=== PATIENT | male | born 1940 | race African-American/Black ===

== ENCOUNTER 2016-05-13 10:47 | Inpatient (IN) ==
[~2016-05-13 10:47] MED LIST: ROCEPHIN 1 GM/NS 50 ML IV ONE
--- NOTE | 2016-05-13 10:53 | PROVIDER DOCUMENTATION ---
HPI-Respiratory General - General Source: family Unable to obtain history due to:: urgency - History of Present Illness-Resp Quality of Pain: reports: tightness Severity in ED: reports: severe Onset/Duration: reports: abrupt, this morning Timing: reports: still present, constant, getting worse Context: reports: recent URI Cough Quality/Degree: reports: moderate, dry cough Episode Frequency: occasional episodes Current Respiratory Medication Therapy: Initiated see nurses note Modifying Factors: worse with: exertion, coughing, lying down Associated Symptoms: reports: cough, shortness of breath, short of breath. denies: fever/chills, flu-like symptoms, hurts to breathe, nasal congestion, nasal drainage, wheezing Similar Symptoms Previously?: No Recently seen or treated by another doctor?: Yes <Dany Hung - Last Filed: 05/13/16 12:36> <Mely Boucher - Last Filed: 05/13/16 12:42> - General Stated Complaint: difficulty breathing Time Seen by Provider: 05/13/16 10:47 Allergies/Adverse Reactions: Patient Allergies Allergy/AdvReac Type Severity Reaction Status Date / Time No Known Allergies Allergy Verified 05/02/15 16:04 Home Medications: Home Medication List Medication Instructions Recorded Confirmed Last Taken Type PRAVAstatin [Pravachol] 80 mg PO QHS 09/21/12 05/02/15 05/12/16 20:00 History Warfarin Sodium [Coumadin] 2.5 mg PO HS 09/21/12 05/02/15 05/12/16 20:00 History Budesonide/Formoterol Inhaler 2 puff INH BID 08/19/14 05/02/15 05/01/15 History [Symbicort 160/4.5 Microgm Inhaler] Meclizine [Antivert] 25 mg PO TID 08/19/14 05/02/15 05/12/16 20:00 History Carvedilol [Coreg] 12.5 mg PO BID #60 tablet 02/22/15 05/02/15 05/12/16 20:00 Rx Furosemide [Lasix] 40 mg PO BID #0 tablet 04/04/15 05/02/15 05/12/16 20:00 Rx Dicyclomine [Bentyl] 20 mg PO BID PRN 05/13/16 05/13/16 Unknown History Isosorbide 10 mg MC TID 05/13/16 05/13/16 05/12/16 20:00 History Levofloxacin [Levaquin] 500 mg PO DAILY 05/13/16 05/13/16 05/12/16 08:00 History Methylprednisolone [Medrol Dosepak] 4 mg PO DIRECTED 05/13/16 05/13/16 20:00 History Potassium Chloride [Klor-Con] 20 meq PO DAILY 05/13/16 05/13/16 05/12/16 20:00 History Sucralfate [Carafate] 1 gm PO 405/13/16 05/13/16 05/12/16 20:00 History - History of Present Illness-Resp Nature of Presenting Problem: patient is a 75 y/o M that presents to the ER via EMS in respiratory distress. patient had had recent PNA and was on antibiotics. He has a history of CHF. Patient symptoms came on abruptly this morning. He has had generalized weakness over the past 3 days. EMS couldn't get an O2 saturation. (Dany Hung) Review of Systems - Adult - REVIEW OF SYSTEMS - ADULT ROS:: ROS per family Constitutional: denies: chills, fever Eyes: reports: no symptoms reported Ears, Nose, Mouth & Throat: denies: ear pain, sinus problem, throat pain Cardiovascular: reports: edema. denies: chest pain, palpitations, syncope Respiratory: reports: cough, dyspnea on exertion, shortness of breath Gastrointestinal: denies: abdominal pain, diarrhea, nausea, vomiting Genitourinary: reports: no symptoms reported Musculoskeletal: reports: muscle weakness. denies: back pain, joint pain, neck pain Integumentary: reports: no symptoms reported Neurological: denies: dizziness/vertigo, headache/migraines, syncope Psychiatric: reports: no symptoms reported Endocrine: reports: no symptoms reported Hematologic/Lymphatic: reports: no symptoms reported Allergic/Immunologic: reports: no symptoms reported All Other Systems: Reviewed and Negative <Dany Hung - Last Filed: 05/13/16 12:36> Past History - Adult - PAST MEDICAL HISTORY-ADULT Review of Records: reports: Old Records Reviewed, Nursing Assessment Review, Medications Reviewed Cardiovascular: reports: cardiac disease (triple bypass), A-Fib, CHF, HTN, MN ( light), pacemaker, other (Cardiomyopathy) Genitourinary: reports: kidney disease (renal insuffiency) - PRIOR SURGERIES/PROCEDURES Surgical/Procedure History: reports: pacemaker, other (triple bypass) - IMMUNIZATION STATUS Childhood Immunizations: See Nurse Assessment Flu Vaccine: See Nurse Assessment - FAMILY HISTORY Family History: reviewed, not pertinent - SOCIAL HISTORY Smoking: cigarettes, less than 1 pack/day Living Situation: family <Dany Hung - Last Filed: 05/13/16 12:36> Physical Exam-General - PHYSICAL EXAM-ADULT Exam Limited by: pt condition Initial Vital Signs Reviewed: Yes - CONSTITUTIONAL General Appearance: severe distress, lethargic - EYES Eyes: PERRL/EOMI, pink conjunctivae - HEAD, EARS, NOSE, MOUTH & THROAT HENMT: normocephalic/atraumatic, moist mucous membranes, normal ENT inspection - NECK Neck: full range of motion, other (JVD noted bilaterally) - RESPIRATORY Respiratory: respiratory distress (moderate to severe), decreased breath sounds (at bases), accessory muscle use, increased rate - CARDIOVASCULAR Cardiovascular: no gallop, no murmur, other (irregular regular) - GASTROINTESTINAL (ABDOMEN) Abdominal Exam: normal bowel sounds, non tender, soft, no organomegaly, no pulsatile mass - MUSCULOSKELETAL Extremity: no calf tenderness, pedal edema (bilaterall at ankles). negative: deformity, erythema - SKIN Integumentary: normal turgor, warm/dry - PSYCHIATRIC Psych/Mental Status: other (lethargic). negative: anxious, paranoid <Dany Hung - Last Filed: 05/13/16 12:36> Progress - EKG 1 Time of EKG reading by physician:: 10:55 EKG Read and Signed by:: John Conteh EKG Interpretation (*Must complete 3 of following elements*): Abnormal Rate: 70 Rhythm: A-fib QRS: RBB ST Wave: non-specific ST changes - XRAY 1 XRAY Study: Chest Impression: Abnormal XRAY Interpretation: ET Tip 2cm above the amor, left infiltrate or atelectasis - CONSULTS/PCP/HOSPITALIST Notification #1 *Consult/PCP/Hospitalist*: ( conference services manager for hospitalist) Time Discussed: 12:15 Reason/Comments: will call and update Consult Disposition: Will see in ED, Admit #2 Consult: Time Discussed: 12:35 Consult Disposition: Will see in ED, Admit <Dany Hung - Last Filed: 05/13/16 12:36> <Mely Boucher - Last Filed: 05/13/16 12:42> - PLAN OF CARE/RESULTS Progress/Plan/Lab Results: 1047- at bedside, agrees with plan of care which is labs, abgs, ekg, meds, cxr, and patient will be placed on BiPap 1110-Patient and family discussing his DNR status, Dr. Conteh took over care. 1123- discussed with and family patient's condition, and family want patient to be intubated 1150- took over care of patient Vital Signs Temp Pulse Resp BP Pulse Ox 05/13/16 11:00 100 05/13/16 10:58 97.3 F L 75 30 H 92/60 100 No Known Allergies Allergy (Verified 05/02/15 16:04) PRAVAstatin [Pravachol] 80 mg PO QHS 09/21/12 Warfarin Sodium [Coumadin] 2.5 mg PO HS 09/21/12 Budesonide/Formoterol Inhaler [Symbicort 160/4.5 Microgm Inhaler] 2 puff INH BID 08/19/14 Meclizine [Antivert] 25 mg PO TID 08/19/14 Carvedilol [Coreg] 12.5 mg PO BID #60 tablet 02/22/15 Furosemide [Lasix] 40 mg PO BID #0 tablet 04/04/15 Dicyclomine [Bentyl] 20 mg PO BID PRN 05/13/16 Isosorbide 10 mg MC TID 05/13/16 Levofloxacin [Levaquin] 500 mg PO DAILY 05/13/16 Methylprednisolone [Medrol Dosepak] 4 mg PO DIRECTED 05/13/16 Potassium Chloride [Klor-Con] 20 meq PO DAILY 05/13/16 Sucralfate [Carafate] 1 gm PO 4XDAY 05/13/16 Laboratory 05/13/16 05/13/16 05/13/16 11:34 11:34 10:51 WBC 7.02 RBC 3.77 L Hgb 11.8 L Hct 35.7 L MCV 94.7 MCH 31.3 H MCHC 33.1 RDW Std Deviation 17.6 H Plt Count 163 MPV 12.1 H Immature Gran % (Auto) 0.3 Neut % (Auto) 80.9 H Lymph % (Auto) 8.8 L [place] % (Auto) 10.0 H Eos % (Auto) 0.0 Baso % (Auto) 0.0 Immature Gran # (Auto) 0.02 Neut # (Auto) 5.68 Lymph # (Auto) 0.62 L [place] # (Auto) 0.70 H Eos # (Auto) 0.00 Baso # (Auto) 0.00 Specimen Type Sample Site pH pCO2 pO2 HCO3 Base Excess Oxyhemoglobin ABG O2 Sat (Calculated) ABG O2 Saturation ABG Carboxyhemoglobin ABG Methemoglobin Terrell Test A-a O2 Difference Total Hemoglobin Lactate Blood Gas Modality Vent Mode FiO2 % Inspiratory BiPAP Expiratory BiPAP Sodium 132 L Potassium 5.8 H Chloride 95 L Carbon Dioxide 16 L Anion Gap 21 BUN 66 H Creatinine 3.9 H Estimated GFR/1.73 m2 18 BUN/Creatinine Ratio 17 Glucose 84 Calculated Osmolality 283 Calcium 9.5 Total Bilirubin 1.16 H AST 26 ALT 13 Alkaline Phosphatase 112 Creatine Kinase 273 H Troponin T 0.078 Total Protein 7.6 Albumin 3.8 Globulin 3.8 Albumin/Globulin Ratio 1.0 05/13/16 10:51 WBC RBC Hgb Hct MCV MCH MCHC RDW Std Deviation Plt Count MPV Immature Gran % (Auto) Neut % (Auto) Lymph % (Auto) [place] % (Auto) Eos % (Auto) Baso % (Auto) Immature Gran # (Auto) Neut # (Auto) Lymph # (Auto) [place] # (Auto) Eos # (Auto) Baso # (Auto) Specimen Type ARTERIAL Sample Site L RADIAL pH 7.28 L pCO2 30 L pO2 393 H HCO3 16.0 L Base Excess -11.4 L Oxyhemoglobin 97.0 ABG O2 Sat (Calculated) 17.5 ABG O2 Saturation 100.2 H ABG Carboxyhemoglobin 2.10 ABG Methemoglobin 1.1 Terrell Test YES A-a O2 Difference 283.0 Total Hemoglobin 12.1 Lactate 1.80 Blood Gas Modality BI PAP Vent Mode BIPAP FiO2 % 100.0 Inspiratory BiPAP 16.0 Expiratory BiPAP 6.0 Sodium Potassium Chloride Carbon Dioxide Anion Gap BUN Creatinine Estimated GFR/1.73 m2 BUN/Creatinine Ratio Glucose Calculated Osmolality Calcium Total Bilirubin AST ALT Alkaline Phosphatase Creatine Kinase Troponin T Total Protein Albumin Globulin Albumin/Globulin Ratio Orders Category Date Time Status Saline Loc NOW Care 05/13/16 10:47 Active CHEST-PORTABLE [RAD] Stat Exams 05/13/16 11:38 Taken ABG [RESP] Routine Lab 05/13/16 10:51 Completed BLOOD CULTURE [BLDCUL] Stat Lab 05/13/16 11:34 Results CBC WITH DIFF [HEME] Stat Lab 05/13/16 10:51 Results CK PROFILE [SP CHEM] Stat Lab 05/13/16 11:34 Results COMPREHENSIVE METABOLIC PANEL [CHEM] Stat Lab 05/13/16 11:34 Results PRO B-NATRIURETIC PEPTIDE Stat Lab 05/13/16 11:34 Received SPUTUM CULTURE WITH GRAM STAIN [RM] Routine Lab 05/13/16 11:49 Received TROPONIN T Stat Lab 05/13/16 11:34 Completed CefTRIAXONE 1 GM/NS [Rocephin 1 gm/Ns] 50 ml Med 05/13/16 10:47 Discontinued IV NOW Etomidate [Amidate] Med 05/13/16 11:35 Discontinued 20 mg IV NOW ONE Propofol [Diprivan 1%] Med 05/13/16 11:47 Discontinued 10 mg IV STAT ONE Propofol [Diprivan 1%] 100 ml Med 05/13/16 11:37 Discontinued .ROUTE As Directed Propofol [Diprivan 1%] 100 ml Med 05/13/16 11:45 Discontinued IV Per Protocol Propofol [Diprivan 1%] 100 ml Med 05/13/16 11:46 Active IV Per Protocol Succinylcholine [Quelicin] Med 05/13/16 11:35 Discontinued 100 mg IV NOW ONE Succinylcholine [Quelicin] Med 05/13/16 11:24 Discontinued 200 mg .ROUTE .STK-MED ONE BIPAP Stat Oth 05/13/16 10:49 Active Pulse Oximetry Stat Oth 05/13/16 10:47 Active Ventilator Order Stat Oth 05/13/16 12:02 Active EKG [EKG] Stat Ther 05/13/16 10:49 Ordered 1 (Dany Hung) Laboratory Tests 05/13/16 05/13/16 05/13/16 10:51 10:51 11:34 WBC 7.02 RBC 3.77 L Hgb 11.8 L Hct 35.7 L MCV 94.7 MCH 31.3 H MCHC 33.1 RDW Std Deviation 17.6 H Plt Count 163 MPV 12.1 H Immature Gran % (Auto) 0.3 Neut % (Auto) 80.9 H Lymph % (Auto) 8.8 L [place] % (Auto) 10.0 H Eos % (Auto) 0.0 Baso % (Auto) 0.0 Immature Gran # (Auto) 0.02 Neut # (Auto) 5.68 Lymph # (Auto) 0.62 L [place] # (Auto) 0.70 H Eos # (Auto) 0.00 Baso # (Auto) 0.00 Segmented Neutrophils 76 H Lymphocytes 18 L Monocytes 6 Nucleated RBCs 3 H Hypochromia 1+ Large Platelets 1+ Poikilocytosis 1+ Anisocytosis 1+ Specimen Type ARTERIAL Sample Site L RADIAL pH 7.28 L pCO2 30 L pO2 393 H HCO3 16.0 L Base Excess -11.4 L Oxyhemoglobin 97.0 ABG O2 Sat (Calculated) 17.5 ABG O2 Saturation 100.2 H ABG Carboxyhemoglobin 2.10 ABG Methemoglobin 1.1 Terrell Test YES A-a O2 Difference 283.0 Total Hemoglobin 12.1 Lactate 1.80 Blood Gas Modality BI PAP Vent Mode BIPAP FiO2 % 100.0 Inspiratory BiPAP 16.0 Expiratory BiPAP 6.0 Sodium 132 L Potassium 5.8 H Chloride 95 L Carbon Dioxide 16 L Anion Gap 21 BUN 66 H Creatinine 3.9 H Estimated GFR/1.73 m2 18 BUN/Creatinine Ratio 17 Glucose 84 Calculated Osmolality 283 Calcium 9.5 Total Bilirubin 1.16 H AST 26 ALT 13 Alkaline Phosphatase 112 Creatine Kinase 273 H Creatine Kinase Index 3.9 H CK-MB (CK-2) 10.76 H Troponin T [id number] Pept Total Protein 7.6 Albumin 3.8 Globulin 3.8 Albumin/Globulin Ratio 1.0 05/13/16 05/13/16 11:34 11:34 WBC RBC Hgb Hct MCV MCH MCHC RDW Std Deviation Plt Count MPV Immature Gran % (Auto) Neut % (Auto) Lymph % (Auto) [place] % (Auto) Eos % (Auto) Baso % (Auto) Immature Gran # (Auto) Neut # (Auto) Lymph # (Auto) [place] # (Auto) Eos # (Auto) Baso # (Auto) Segmented Neutrophils Lymphocytes Monocytes Nucleated RBCs Hypochromia Large Platelets Poikilocytosis Anisocytosis Specimen Type Sample Site pH pCO2 pO2 HCO3 Base Excess Oxyhemoglobin ABG O2 Sat (Calculated) ABG O2 Saturation ABG Carboxyhemoglobin ABG Methemoglobin Terrell Test A-a O2 Difference Total Hemoglobin Lactate Blood Gas Modality Vent Mode FiO2 % Inspiratory BiPAP Expiratory BiPAP Sodium Potassium Chloride Carbon Dioxide Anion Gap BUN Creatinine Estimated GFR/1.73 m2 BUN/Creatinine Ratio Glucose Calculated Osmolality Calcium Total Bilirubin AST ALT Alkaline Phosphatase Creatine Kinase Creatine Kinase Index CK-MB (CK-2) Troponin T 0.078 [id number]-Czwnfchsmqh Pept > 60485 H Total Protein Albumin Globulin Albumin/Globulin Ratio Orders Category Date Time Status Saline Loc NOW Care 05/13/16 10:47 Active CHEST-PORTABLE [RAD] Stat Exams 05/13/16 11:38 Draft ABG [RESP] Routine Lab 05/13/16 10:51 Completed BLOOD CULTURE [BLDCUL] Stat Lab 05/13/16 11:34 Results CBC WITH DIFF [HEME] Stat Lab 05/13/16 10:51 Completed CK PROFILE [SP CHEM] Stat Lab 05/13/16 11:34 Completed COMPREHENSIVE METABOLIC PANEL [CHEM] Stat Lab 05/13/16 11:34 Completed PRO B-NATRIURETIC PEPTIDE Stat Lab 05/13/16 11:34 Completed SPUTUM CULTURE WITH GRAM STAIN [RM] Routine Lab 05/13/16 11:49 Received TROPONIN T Stat Lab 05/13/16 11:34 Completed CefTRIAXONE 1 GM/NS [Rocephin 1 gm/Ns] 50 ml Med 05/13/16 10:47 Discontinued IV NOW Etomidate [Amidate] Med 05/13/16 11:35 Discontinued 20 mg IV NOW ONE Levofloxacin 750 mg/D5w [Levaquin 750 mg/D5w] 150 ml Med 05/13/16 12:30 Active IV NOW Methylprednisolone Sod Succ [Solu-Medrol] Med 05/13/16 12:31 Discontinued 80 mg IV NOW ONE Propofol [Diprivan 1%] Med 05/13/16 11:47 Discontinued 10 mg IV STAT ONE Propofol [Diprivan 1%] 100 ml Med 05/13/16 11:37 Discontinued .ROUTE As Directed Propofol [Diprivan 1%] 100 ml Med 05/13/16 11:45 Discontinued IV Per Protocol Propofol [Diprivan 1%] 100 ml Med 05/13/16 11:46 Active IV Per Protocol Succinylcholine [Quelicin] Med 05/13/16 11:35 Discontinued 100 mg IV NOW ONE Succinylcholine [Quelicin] Med 05/13/16 11:24 Discontinued 200 mg .ROUTE .STK-MED ONE BIPAP Stat Oth 05/13/16 10:49 Active Pulse Oximetry Stat Oth 05/13/16 10:47 Active Ventilator Order Stat Oth 05/13/16 12:02 Active EKG [EKG] Stat Ther 05/13/16 10:49 Ordered Orders Category Date Time Status Saline Loc NOW Care 05/13/16 10:47 Active CHEST-PORTABLE [RAD] Stat Exams 05/13/16 11:38 Draft ABG [RESP] Routine Lab 05/13/16 10:51 Completed BLOOD CULTURE [BLDCUL] Stat Lab 05/13/16 11:34 Results CBC WITH DIFF [HEME] Stat Lab 05/13/16 10:51 Completed CK PROFILE [SP CHEM] Stat Lab 05/13/16 11:34 Completed COMPREHENSIVE METABOLIC PANEL [CHEM] Stat Lab 05/13/16 11:34 Completed PRO B-NATRIURETIC PEPTIDE Stat Lab 05/13/16 11:34 Completed SPUTUM CULTURE WITH GRAM STAIN [RM] Routine Lab 05/13/16 11:49 Received TROPONIN T Stat Lab 05/13/16 11:34 Completed CefTRIAXONE 1 GM/NS [Rocephin 1 gm/Ns] 50 ml Med 05/13/16 10:47 Discontinued IV NOW Etomidate [Amidate] Med 05/13/16 11:35 Discontinued 20 mg IV NOW ONE Levofloxacin 750 mg/D5w [Levaquin 750 mg/D5w] 150 ml Med 05/13/16 12:30 Active IV NOW Methylprednisolone Sod Succ [Solu-Medrol] Med 05/13/16 12:31 Discontinued 80 mg IV NOW ONE Propofol [Diprivan 1%] Med 05/13/16 11:47 Discontinued 10 mg IV STAT ONE Propofol [Diprivan 1%] 100 ml Med 05/13/16 11:37 Discontinued .ROUTE As Directed Propofol [Diprivan 1%] 100 ml Med 05/13/16 11:45 Discontinued IV Per Protocol Propofol [Diprivan 1%] 100 ml Med 05/13/16 11:46 Active IV Per Protocol Succinylcholine [Quelicin] Med 05/13/16 11:35 Discontinued 100 mg IV NOW ONE Succinylcholine [Quelicin] Med 05/13/16 11:24 Discontinued 200 mg .ROUTE .STK-MED ONE BIPAP Stat Oth 05/13/16 10:49 Active Pulse Oximetry Stat Oth 05/13/16 10:47 Active Ventilator Order Stat Oth 05/13/16 12:02 Active EKG [EKG] Stat Ther 05/13/16 10:49 Ordered (Mely Boucher) Procedures - INTUBATION Time of Intubation: 11:50 Mallampati Class: 1 Intubation Method: orotracheal Equipment: ETT Tube Size (cm): 7.5 Pretreated with 100% Oxygen?: Yes Breath Sounds after Intubation: equal ETT Primary Tube Confirmation: Capnometry CO2 Change, Direct Visualization, Chest Rise and Fall, Tube placement verified on XRAY, Tube Repositioned (1cm back) Intubation Complications: no complications Vent Settings: See Respiratory Therapy Notes <Dany Hung - Last Filed: 05/13/16 12:36> - INTUBATION Time of Intubation: 11:35 Airway Evaluation: Abnormal 3-3-2 rule, Large/Loose Teeth Mallampati Class: 2 Intubation Method: orotracheal Equipment: ETT Tube Size (cm): 7.5 Pretreated with 100% Oxygen?: Yes Breath Sounds after Intubation: equal ETT Primary Tube Confirmation: Capnometry CO2 Change, Direct Visualization, Chest Rise and Fall Intubation Complications: no complications Vent Settings: See Respiratory Therapy Notes <Mely Boucher - Last Filed: 05/13/16 12:42> Departure - Departure Time of Disposition Order: 12:15 Certified Medical Emergency: Emergent - Critical Care Note Total Time (mins): 55 Critical Care Statement: This patient required my direct personal management to treat or rule out processes, the absence of which, could potentiallly result in sudden, clinically significant life or limb threatening deterioration. <Dany Hung - Last Filed: 05/13/16 12:36> - Departure Time of Disposition Order: 12:00 <Mely Boucher - Last Filed: 05/13/16 12:42> - Departure DIAGNOSIS: COPD exacerbation, Shortness of breath, Atrial fibrillation Respiratory failure Qualifiers: Chronicity: acute Respiratory failure complication: hypoxia Qualified Code(s): J96.01 - Acute respiratory failure with hypoxia LLL pneumonia Qualifiers: Pneumonia type: due to unspecified organism Qualified Code(s): J18.1 - Lobar pneumonia, unspecified organism Disposition: ADMITTED INPATIENT 09 Condition: Critical Referrals: Yaritza Gonzalez MD [Primary Care Provider] - Attestation - Scribe Verification/Attestation Scribe:: Dany Hung Acting as Scribe for:: Brian Duff Scribe documention review:: This chart was documented by a scribe and accurately reflects the service the provider performed and the decisions made by the provider. - Scribe Verification/Attestation #2 Scribe Name: Dany Hung Acting as Scribe for:: John Conteh #3 Scribe Name: Dany Hung Acting as Scribe for:: Mely Boucher - Physician/ [place] Attestation Patient care was provided by Advanced Practice Provider:: Yes Advanced Practice Provider:: Brian Duff Advanced Practice Provider documentation review:: The Mid-level provider documentation, treatment plan and medical decision making was reviewed by the physician who agrees with all treatment and medical decision making by the [facility]. The physician spent face to face time with patient:: Yes <Dany Hung - Last Filed: 05/13/16 12:36> Physician Attestation - Physician Attestation I, the provider, attest to the following statement:: Brian Duff Physician documentation Attestation:: This documentation recorded by the scribe accurately reflects the service I personally performed and the decisions made by me. <Dany Hung - Last Filed: 05/13/16 12:36>
[2016-05-13 10:59] LABS: ALLEN TEST YES; BE -11.4 mmoll (-3.0-3.0); BLOOD TYPE ARTERIAL; DRAW SITE L RADIAL; METHB 1.1 % (0.0-1.5); O2(CT) 17.5 mL/dL (15.0-23.0); PCO2(98.6) 30 mmHg (35-45); PO2(98.6) 393 mmHg (60-100); SAMPLE BLOOD; SAO2 100.2 % (95.0-100.0); THB 12.1 g/dL (11.5-17.4); pH(98.6) 7.28 (7.35-7.45)
[2016-05-13 11:01] LABS: MODALITY BI PAP
[2016-05-13] MEDS ORDERED: QUELICIN ONE (11:24)
[2016-05-13] MEDS ORDERED: AMIDATE IV ONE (11:35)
[2016-05-13] MEDS ORDERED: QUELICIN IV ONE (11:35)
[2016-05-13 11:37] LABS: HEMATOCRIT 35.7 % (42.0-52.0); HEMOGLOBIN 11.8 g/dL (14.0-18.0); IMM GRAN# 0.02 X1000 (0.0-0.04); IMM GRAN% 0.3 % (0.0-0.5); LYMPH# 0.62 X1000 (1.2-3.4); LYMPH% 8.8 % (20.5-51.1); MANUAL DIFF NEEDED? YES; MCH 31.3 PG (27-31); MCHC 33.1 g/dL (33-37); MCV 94.7 FL (81-99); MPV 12.1 FL (7.4-10.4); NEUT% 80.9 % (42.2-75.2); PLT 163 X1000 (130-400); RBC 3.77 XMIL (4.7-6.1)
[2016-05-13] MEDS ORDERED: DIPRIVAN 1% 100 ML ONE (11:37)
[2016-05-13] MEDS: DIPRIVAN 1% 100 ML IV SCH ×6 (11:39→22:07)
[2016-05-13] MEDS ORDERED: DIPRIVAN 1% 100 ML IV SCH (11:45)
[2016-05-13] MEDS ORDERED: DIPRIVAN 1% IV ONE (11:47)
[2016-05-13 12:06] LABS: ALBUMIN 3.8 g/dL (3.5-5.0); CALCIUM 9.5 mg/dL (8.8-10.2); POTASSIUM 5.8 mmol/L (3.5-5.1); TOTAL BILIRUBIN 1.16 mg/dL (0.20-1.00); TOTAL PROTEIN 7.6 g/dL (6.3-8.3)
--- NOTE | 2016-05-13 12:27 | Diag Imaging Result Document ---
PROCEDURE NAME: CHEST-PORTABLE - 05/13/2016 PORTABLE CHEST: FINDINGS: Compared to 03/30/2015. There is an endotracheal tube with the tip located approximately 2 cm above the amor. Sternal wires are present. The patient has a pacemaker. The heart remains enlarged. Likely infiltrate or atelectasis in the left base and there may be a tiny left effusion as well. The upper mid lungs are clear. IMPRESSION: 1. Endotracheal tube in good position. 2. Left basilar infiltrate or atelectasis. [facility]
[2016-05-13 12:28] LABS: CK INDEX 3.9 (0.0-2.5); CK-MB 10.76 ng/mL (0.0-5.0)
[2016-05-13 12:30] LABS: HYPOCHROM 1+; LARGE PLATELETS 1+; LYMPHS 18 % (21-51); MONO 6 % (1-9); NRBC 3 % (0-0)
[2016-05-13] MEDS ORDERED: LEVAQUIN 750 MG/D5W 150 ML IV ONE (12:30)
[2016-05-13] MEDS ORDERED: SOLU-MEDROL IV ONE (12:31)
[2016-05-13] MEDS ORDERED: TYLENOL PO PRN (13:17)
[2016-05-13 13:23] LABS: ALLEN TEST YES; BE -10.6 mmoll (-3.0-3.0); BLOOD TYPE ARTERIAL; DRAW SITE L RADIAL; METHB 1.1 % (0.0-1.5); O2(CT) 15.2 mL/dL (15.0-23.0); PCO2(98.6) 36 mmHg (35-45); PO2(98.6) 172 mmHg (60-100); SAMPLE BLOOD; SAO2 100.2 % (95.0-100.0); SRATE 14 BPM; THB 10.9 g/dL (11.5-17.4); TVOL 600 mL; pH(98.6) 7.25 (7.35-7.45)
[2016-05-13 13:24] LABS: MODALITY VENTILATOR
[2016-05-13] MEDS ORDERED: MAXIPIME 1 GM/NS 50 ML IV ONE (13:29)
[2016-05-13] MEDS ORDERED: DUONEB (A & A) INH PRN (13:29)
[2016-05-13] MEDS ORDERED: VANCOMYCIN IV PER PHARMACY MISC SCH (13:30)
[2016-05-13] MEDS ORDERED: MORPHINE IV PRN (13:30)
[2016-05-13 13:41] LABS: INR 2.59; PROTIME 27.7 Seconds (9.2-11.7)
--- NOTE | 2016-05-13 14:36 | EKG Report ---
Test Performed on : 05/13/2016 10:55:42 AM Test Reason : respiratory distress Blood Pressure : / mmHG Vent. 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
[2016-05-13] MEDS: DUONEB (A & A) INH SCH ×3 (15:21→23:48)
[2016-05-13] MEDS ORDERED: VANCOMYCIN 2,000 MG in NS 500 ML IV ONE (16:00)
--- NOTE | 2016-05-13 16:17 | ECHO REPORT ---
ORDER DATE: 05/13/2016 INDICATIONS: CHF exacerbation. FINDINGS: 1. The right atrium is moderately enlarged with a dimension of 5 cm. Linear artifact consistent with device leads are noted in the right heart chambers. 2. There is severe tricuspid regurgitation. RV systolic pressure of 43. 3. The right ventricle was enlarged with moderate reduction in RV systolic function. 4. Pulmonic insufficiency. 5. Severe left atrial enlargement at 6.3 cm. 6. No mitral valve prolapse. Trace mitral regurgitation. 7. The left ventricle appears normal in size with an end-diastolic dimension of 5.1. There is severe left ventricular hypertrophy with a posterior and interventricular septal wall thickness 1.7 cm each. Severe LV systolic dysfunction with an estimated EF 15-20. Global hypokinesis with regional variation. Notably there is a significant spontaneous smoke seen in the left ventricular chamber consistent with a low-flow state. 8. The aortic valve opens well and appears trileaflet. There is mild aortic insufficiency. No evidence of stenosis. 9. The aorta appears somewhat dilated with a dimension of 4.4 cm seen in the root. 10. No pericardial effusion is seen.
[2016-05-13] MEDS ORDERED: DOPAMINE 400 MG/D5W 500 ML IV SCH (17:30)
[2016-05-13] MEDS ORDERED: LASIX IV SCH (17:38)
[2016-05-13] MEDS ORDERED: ATIVAN IV PRN (17:38)
[2016-05-13] MEDS: LASIX 100 MG in NS 90 ML IV SCH (17:50)
--- NOTE | 2016-05-13 18:02 | HISTORY AND PHYSICAL ---
CHIEF COMPLAINT: As per at bedside, shortness of breath, increased swelling in bilateral lower extremities, with a positive productive cough now for many months. The patient is currently intubated and sedated on propofol. HISTORY OF PRESENT ILLNESS: Mr. Josehp is a 75-year-old male, who comes with a past medical history of chronic systolic heart failure, COPD, coronary artery disease status post CABG, atrial fibrillation with a defibrillator, hypertension, dyslipidemia, chronic kidney disease stage 3 as well as a recent diagnosis on 05/09/16 of pneumonia by his primary care physician, Yaritza Gonzalez MD. He was started on Levaquin, given a steroid dose pack and if not feeling better on Friday was told to start a Z-Han which he did. Per the and daughter, patient continued to have worsening shortness of breath and worsening bilateral lower extremity edema. They noted that he was complaining of some abdominal discomfort, which he usually has when he has too much fluid on him. The family also did report a very productive cough. They stated he has had a productive cough for over a year now. They really wanted to bring him back to the ED on Friday; however, patient's brother who recently and his is today, but his shortness of breath was so bad that they had to call EMS. Per EMS report, they could not get an oxygen saturation on the patient. He was brought here, immediately placed on BiPAP and then shortly after he was intubated by the ED doctors. Upon physical assessment, the patient is intubated. He did have copious amounts of secretions coming out of his mouth which were suctioned out. His ABGs did show metabolic acidosis and his chest x-ray shows left basilar infiltrate and/or atelectasis with a tiny left pleural effusion. He does have an acute on chronic kidney injury with a BUN of 66 and a creatinine of 3.9, and a proBNP greater than 35,000 as well as a potassium of 5.8 and a sodium of 132. Blood and sputum cultures are pending. The patient will be admitted to the ICU with a Pulmonary, Cardiology and Nephrology consult as well as started on IV vancomycin and cefepime. PAST MEDICAL HISTORY: 1. Coronary artery disease status post CABG. 2. Chronic systolic heart failure status post ICD placement. 3. Hypertension. 4. PA. 5. Hyperlipidemia. 6. COPD. I believe the patient is still on active smoker. 7. Chronic kidney disease stage 3. 8. Chronic atrial fibrillation. PAST SURGICAL HISTORY: 1. CABG. 2. ICD placement. FAMILY HISTORY: Family history reviewed and noncontributory. SOCIAL HISTORY: Patient lives with his . He has a supportive family at the bedside. I believe he is still a current smoker. No alcohol or illicit drug use. ALLERGIES: No known drug allergies. HOME MEDICATIONS: Have not been verified. REVIEW OF SYSTEMS: Ten point review of systems completely negative, except for those mentioned in HPI. Very limited due to patient being intubated and sedated. Most information obtained from the and daughter at bedside. PHYSICAL EXAMINATION: VITAL SIGNS: Temperature is 97.3 degrees, heart rate 78, respirations 14, blood pressure is 92/59, O2 is 96% on mechanical ventilation. GENERAL: This is a 75-year-old male, who is lying on the stretcher intubated, sedated, in no acute distress. Does have a positive gag reflex when oral suctioned. HEENT: Atraumatic, normocephalic. PERRL. NECK: Supple. Did note some JVD. CARDIOVASCULAR: S1, S2 appreciated. Irregularly irregular rhythm. No murmurs, gallops, or rubs noted. RESPIRATORY: Lung sounds, bilateral rhonchi all lung galarza. EXTREMITIES: Bilateral lower extremities, patient does have pitting edema from the groin area down to his feet, 2-3+. ABDOMEN: Soft, positive bowel sounds 4 quadrants. NEUROLOGIC: Patient is sedated on propofol. LABORATORY DATA: White count 7, hemoglobin 11, hematocrit 35, platelet count is 163,000. PT and INR are ordered. Initial blood gas: PH 7.28, pCO2 30, PO2 is 393, bicarb 16. Base excess was negative 11.4. O2 saturation was 100.2. This was on BiPAP. Repeat ABGs on ventilator: PH 7.25, pCO2 36, PO2 is 172, bicarb is 16.7, base excess was -10.6. O2 saturation was 100, lactate was 1.80. Second lactate was 1.10. Blood cultures and sputum culture are pending. IMAGING: Chest x-ray shows left basilar infiltrate or atelectasis and tiny left effusion. ASSESSMENT AND PLAN: 1. Acute respiratory failure with secondary metabolic acidosis, multifactorial related to chronic obstructive pulmonary disease exacerbation and congestive heart failure exacerbation. The patient is being admitted to the intensive care unit. He was intubated in the emergency department. We will consult Pulmonology, Dr. Nathan. Daily x-rays as well as arterial blood gases and breathing treatments while on ventilator. We appreciate Dr. Nathan's help. 2. Left lower lung pneumonia with a recent diagnosis of pneumonia with his primary care physician, Dr. Gonzalez. Patient was on p.o. Levaquin. We will switch his antibiotics to vancomycin as well as Cefepime. We have asked Nephrology to help dose with medications. 3. Chronic obstructive pulmonary disease exacerbation. Again, we will continue with the mechanical ventilation, Pulmonary consult as well as continued intravenous antibiotics, bronchodilators, intravenous steroids, aggressive pulmonary toilet. 4. Congestive heart failure exacerbation. We will continue with intravenous Lasix, monitor daily weights, strict input and output . We will go ahead and check echocardiogram. Patient's last echo was over a year ago where he had an ejection fraction of 39-43%. 5. Severe ischemic cardiomyopathy with known coronary artery disease with status post coronary artery bypass graft. Aware. 6. Ventricular arrhythmias. Aware. Status post implantable cardioverter defibrillator. 7. Chronic atrial fibrillation on Coumadin. We will check ProTime and international normalized ratio daily. 8. Hypertension. Aware. 9. Dyslipidemia. Aware. 10. Chronic kidney disease, I believe stage III on acute kidney injury. We will consult Dr. Gill again to help with medical management. 11. Chronic obstructive pulmonary disease exacerbation. See all above. The patient is being transferred to the intensive care unit on ventilator and sedation as well as medication for agitation and pain. Further recommendations to follow physician evaluation, laboratory data, diagnostic data and consult recommendations. CRITICAL CARE TIME SPENT: Greater than 30 minutes. Dictated by RUMA De León for Pedro Rocha MD
[2016-05-13] MEDS ORDERED: D50W SYRINGE IV ONE (18:05)
[2016-05-13 18:56] LABS: CK-MB 9.46 ng/mL (0.0-5.0)
--- NOTE | 2016-05-13 19:39 | CONSULTATION ---
DATE OF CONSULTATION: 05/13/2016 CHIEF COMPLAINT: Shortness of breath, swelling. HISTORY OF PRESENT ILLNESS: Mr. Joseph is a 75-year-old black gentleman who is normally followed by Dr. Sada Burr at our office. He was brought to the emergency room by the family today because for the past 2 weeks or so he has been complaining of increasing epigastric pain and swelling of the legs associated with shortness of breath. The shortness of breath happens with minimal effort. Over the course of the past few days, it has been happening just at rest with orthopnea. Today he could barely breathe and the family basically brought him to the hospital. According to them, he was seen by his primary doctor on of last week, which would have been about 4 days ago. At that time he was placed on levofloxacin, methylprednisolone, and sucralfate because of suspicion of some bronchitis. At any rate, the patient today at the time of presentation was in acute respiratory failure. Chest x-ray showed pulmonary infiltrates, atelectasis. Pro BNP was greater than 35,000. CPK was 273. BUN was 66, creatinine 3.9. This is one of the highest that he has had in a long time. His electrocardiogram showed a paced rhythm. It appears to be underlying atrial fibrillation, ventricular paced and with PVCs. His blood gas initially showed pH 7.28, pCO2 of 30, and pO2 of 393 on a BiPAP system. Eventually he had to be intubated. At this time, he is on IV propofol. He is sedated. Family is at the bedside. They provided the pertinent information. PAST MEDICAL HISTORY: Positive for severe coronary heart disease in the past. He has had impaired ventricular function. As of August 2014, ejection fraction was 39%. Today echocardiogram was done and his ejection fraction is between 15-20%, significantly impaired. He has history of hypertension, history of paroxysmal atrial fibrillation. He has had ventricular tachycardia in the past. As I said, he has coronary heart disease. PAST SURGICAL HISTORY: Positive for coronary artery bypass surgery in March 2005, with a left internal mammary artery graft to LAD, vein graft to marginal, vein graft to right coronary artery. The patient has received an AICD in November 2006 and subsequently the battery has been replaced on 09/21/2012. SOCIAL HISTORY: He has been for 51 years, has two children. He does smoke half a pack a day. He is retired. He occasionally drinks alcohol. FAMILY HISTORY: Positive for coronary heart disease. HOME MEDICATIONS: 1. Warfarin 2.5 at bedtime. 2. Sucralfate 1 g 4 times a day. 3. Potassium chloride 20 mEq daily. 4. Pravastatin 80 mg at bedtime. 5. Methylprednisolone 40 mg as directed. 6. Meclizine 25 mg 3 times a day. 7. Levaquin 500 daily. 8. Isosorbide dinitrate 3 times a day, 10 mg. 9. Furosemide 40 mg twice a day. 10.Dicyclomine 20 mg twice a day. 11.Carvedilol 12.5 twice a day. 12.Symbicort 2 puffs twice a day. ALLERGIES: The patient has no allergies. REVIEW OF SYSTEMS: His review of systems at this time is not obtainable other than what the family relates which is that his functional capacity has deteriorated. He has been more short of breath. He has been swelling up and he has been having epigastric pain. No other positives. PHYSICAL EXAMINATION: Vital signs: Blood pressure 130/94, temperature 98.5, pulse 76, respirations 12. General: He is sedated. Neck: Prominent jugular veins. HEENT: Pupils showed changes consistent with previous cataract surgery. Breath sounds are diminished bilaterally. I do not hear rhonchi or rales. Cardiac: Heart sounds are slightly irregular. No gallop or murmur noted. Abdomen: Slightly distended. Bowel sounds diminished. No hepatomegaly. Extremities: Showed markedly diminished pulses. He has 2-3+ edema bilaterally. Neurologic: He is sedated. LABORATORY DATA: Blood work, in addition to the blood gases I related, showed hemoglobin 11.8, hematocrit 35.7, white count 7020. Chemistries: Sodium 132, potassium 5.8, BUN 66, creatinine 3.9. IMPRESSION: 1. Patient who presented to the hospital with acute respiratory failure. This is secondary to chronic systolic congestive heart failure plus acute on chronic kidney failure. 2. History of previous coronary bypass surgery. 3. History of chronic atrial fibrillation on long-term anticoagulation with warfarin. Of note, his anticoagulation is adequate at this time. INR is 2.59. 4. Status post AICD implantation for ventricular tachycardia. 5. Significant and progressive deterioration of systolic function per today's echocardiogram. RECOMMENDATIONS: At this point in time, the patient's situation appears to be grave. We will initiate aggressive diuresis. He may need hemodialysis to remove fluids. His overall prognosis is quite guarded. We may have to put him on low-dose dopamine if his blood pressure drops. Further intervention will depend on his clinical course. Thank you for the opportunity to participate in his evaluation. MTDD
[2016-05-13] MEDS: PRAVACHOL PO SCH (20:46)
[2016-05-13] MEDS: SODIUM CHLORIDE 0.9% INJ SCH (21:06)
[2016-05-13] MEDS: PROTONIX IV SCH (21:06)
[2016-05-13] MEDS: SODIUM BICARBONATE 8.4% IV PUSH SCH (21:06)
[2016-05-14] MEDS: SODIUM BICARBONATE 8.4% IV PUSH SCH ×2 (00:43→03:45)
[2016-05-14] MEDS: LASIX 100 MG in NS 90 ML IV SCH ×3 (01:20→19:00)
[2016-05-14] MEDS: MAXIPIME 1 GM/NS 50 ML IV SCH ×2 (02:06→15:47)
[2016-05-14] MEDS: DIPRIVAN 1% 100 ML IV SCH ×5 (02:06→22:27)
[2016-05-14] MEDS: DUONEB (A & A) INH SCH ×6 (03:29→22:36)
[2016-05-14 04:53] LABS: ALLEN TEST YES; BE -0.3 mmoll (-3.0-3.0); BLOOD TYPE ARTERIAL; DRAW SITE R RADIAL; METHB 1.6 % (0.0-1.5); O2(CT) 15.9 mL/dL (15.0-23.0); PCO2(98.6) 23 mmHg (35-45); PO2(98.6) 128 mmHg (60-100); SAMPLE BLOOD; SRATE 18 BPM; THB 11.6 g/dL (11.5-17.4); TVOL 700 mL
--- NOTE | 2016-05-14 04:54 | CONSULTATION ---
DATE OF CONSULTATION: 05/13/2016 REQUESTING PHYSICIAN: Dr. Rocha. REASON FOR CONSULTATION: Respiratory failure. HISTORY OF PRESENT ILLNESS: Mr. Joseph is a 75-year-old, black male with a history of prior tobacco use, coronary artery disease, peripheral vascular disease who presented to the emergency room with acute respiratory distress. The patient was intubated and initiated on mechanical ventilation. History is therefore limited. PAST MEDICAL HISTORY: 1. Ischemic cardiomyopathy with a history of 3 vessel bypass and history of left main disease with a left internal mammary artery placement. Echocardiogram today revealed an ejection fraction of 15-20%. 2. History of congestive heart failure. 3. History of ventricular arrhythmias. 4. Chronic atrial fibrillation. 5. Hypertension. 6. Dyslipidemia. 7. Chronic renal insufficiency. 8. Aortic aneurysm, status post endograft placement. 9. Gastroesophageal reflux disease. 10. Status post bilateral cataract removal. 11. Social alcohol use. SOCIAL HISTORY: Previous consultation by cardiology indicated prior tobacco use. Current intake indicates continued tobacco use at 1 pack per day. FAMILY HISTORY: Noncontributory to current presentation. REVIEW OF SYSTEMS: Cannot be obtained. PHYSICAL EXAMINATION: General: Reveals a chronically ill-appearing, black male, on mechanical ventilation. Currently sedated. Vital Signs: Blood pressure 127/84, heart rate 68 and irregular, respiration rate 18, oxygen saturation 100%. HEENT: Pupils are equal and reactive. Oropharynx is clear but evaluation is limited with endotracheal tube in place. Neck: Supple. Chest: Reveals good air entry bilaterally with occasional rhonchi. Cardiac Examination: Irregularly irregular. Distant S1, distant S2. Abdomen: Soft without hepatosplenomegaly. Extremities: Cool to the touch. LABORATORIES: Chest x-ray reveals endotracheal tube in good position, pacemaker placement, atelectasis versus infiltrate with small effusions to the left base. Arterial blood gas on mechanical ventilation reveals pH of 7.25, pCO2 of 36, PO2 of 172. Chemistry: Sodium 132, potassium 5.8, chloride 95, bicarbonate 16, BUN 66, creatinine 3.9. ProBNP is markedly elevated at greater than 35,000. CPK is elevated at 236 with an index of 4, troponin is at the upper limits of normal at 0.78. White blood count 7.02, hemoglobin 11.8, platelet count 163,000. IMPRESSION: A 75-year-old with a history of ongoing tobacco use according to the nursing intake sheet, ischemic cardiomyopathy, who presents with acute hypoxemic respiratory failure, acute on chronic renal failure, hyperkalemia. RECOMMENDATION: 1. Continue full ventilatory support. 2. Increase minute ventilation and give sodium bicarbonate for acidosis and hyperkalemia. 3. Check sputum for culture and sensitivity. 4. Continue broad-spectrum antibiotics as you are doing. 5. Gastric acid suppression. 6. Additional recommendations pending hospital course.
[2016-05-14 04:55] LABS: CALCIUM 9.4 mg/dL (8.8-10.2); POTASSIUM 4.4 mmol/L (3.5-5.1)
[2016-05-14 04:59] LABS: pH(98.6) 7.56 (7.35-7.45)
[2016-05-14 05:00] LABS: MODALITY VENTILATOR
[2016-05-14 05:00] LABS: HEMATOCRIT 36.6 % (42.0-52.0); HEMOGLOBIN 12.4 g/dL (14.0-18.0); LYMPH# 0.33 X1000 (1.2-3.4); LYMPH% 6.5 % (20.5-51.1); MANUAL DIFF NEEDED? YES; MCH 30.9 PG (27-31); MCHC 33.9 g/dL (33-37); MCV 91.3 FL (81-99); MONO# 0.32 X1000 (0.11-0.59); MONO% 6.3 % (1.7-9.3); MPV 11.3 FL (7.4-10.4); NEUT% 87.2 % (42.2-75.2); PLT 173 X1000 (130-400); RBC 4.01 XMIL (4.7-6.1)
[2016-05-14 06:26] LABS: LYMPHS 5 % (21-51); MONO 2 % (1-9); NRBC 3 % (0-0)
[2016-05-14 06:55] LABS: INR 2.52
--- NOTE | 2016-05-14 07:36 | Diag Imaging Result Document ---
PROCEDURE NAME: CHEST-PORTABLE - 05/14/2016 PORTABLE CHEST X-RAY: COMPARISON: 05/13/2016. FINDINGS: There is probably an endotracheal tube, although positioning of the film is not optimal. Nasogastric tube is in good position in the stomach. Stable pacemaker and cardiomegaly. Grossly stable streaky retrocardiac infiltrate or atelectasis. IMPRESSION: No complication from line or tube placement.
--- NOTE | 2016-05-14 07:54 | Diag Imaging Result Document ---
PROCEDURE NAME: CHEST-PORTABLE - 05/13/2016 PORTABLE CHEST X-RAY AT 1900 HOURS: COMPARISON: 1150 hours. FINDINGS: There is a nasogastric tube with the tip in the stomach. Otherwise, no changes. IMPRESSION: Good nasogastric tube placement in the stomach.
--- NOTE | 2016-05-14 09:33 | PROGRESS NOTE ---
DATE: 05/14/2016 CHIEF COMPLAINT: Shortness of breath. SUBJECTIVE: Mr. Joseph remains on the ventilator. He is totally sedated and unresponsive. OBJECTIVE: Vital signs: Right now his pulse is 77 and irregular, blood pressure 124/92, respirations 12, and temperature 98 degrees. He is orotracheal intubated. He has no spontaneous movements. HEENT: Unremarkable. Chest: Symmetrical breath sounds. Cardiovascular: Heart sounds are distant and irregular. Gastrointestinal: The abdomen is not distended. No hepatomegaly is noted. Extremities: The extremities show decreased pulses. There is 1+ edema. Neurological: He is totally sedated and I cannot elicit any response from him. Blood work reveals a sodium of 138, potassium 4.4, BUN 67, and creatinine 3.4. ProBNP has dropped to 25,000. Troponins have been checked a total of 3 times and they were all negative. His telemetry shows atrial fibrillation with PVCs, paced rhythm. The patient has been on anticoagulation and in fact his INR is therapeutic today at 2.52. IMPRESSION: 1. Patient presenting with acute respiratory failure. This is secondary to chronic systolic heart failure due to ischemic cardiomyopathy which probably has experienced decompensation. 2. Chronic kidney disease also with acute decompensation. 3. History of automatic implantable cardioverter defibrillator implantation. 4. History of hypertension in the past. RECOMMENDATION: At this point in time the patient's condition is still very grave. We have put him on IV Lasix and he is experiencing good diuresis. In fact, his sodium and potassium have corrected just by diuresing. His blood gases today on 35% FiO2 are very good with a pO2 of 128. CO2 is 23. His pH is alkalotic. At this point in time I would probably continue the present course of management. We will have to take one day at a time. The family is aware of the seriousness of his condition. We will make further changes to his therapy depending on his overall clinical course. Given his recurrent hospital admissions and his general poor health his prognosis is very guarded and it would not be unreasonable to offer the option of hospice care for this patient at some point. Thank you again for the opportunity to participate in his evaluation.
[2016-05-14 11:06] LABS: URINE MICRO REVIEW NEEDED? NO; URINE SOURCE CATH
--- NOTE | 2016-05-14 11:12 | PROGRESS NOTE ---
DATE: 05/14/2016 Today Mr. Joseph continues to be intubated. There are actually no changes overnight. OBJECTIVE: Vital signs: Blood pressure is 117/87, pulse of 85, respiration is 19, temperature 98.0 degrees. General: Mr. Joseph is a 75-year-old male. He is in bed, intubated and sedated. HEENT: Mucosa is pink and moist. Anicteric. Acyanotic. Neck: Supple. Positive for JVD. Chest: Air entry is bilaterally reduced. There are bibasilar coarse crepitations. Cardiovascular: Regular rate and rhythm with occasional extrasystole beats. There is pronounced P2 sound. Arm numb. Abdomen: Soft, nontender. Extremities: 3+ pedal edema. PRODUCTION ASSISTANT: Patient is sedated and intubated. LABORATORY DATA: WBC is 5.04, hemoglobin is 12.4, platelet count of 173,000. There is 93% of neutrophils and no bands. Chemistry is reviewed consistent with end-stage renal disease. A chest x-ray done this morning shows grossly stable streaky retrocardiac infiltrate or atelectasis. An echocardiogram which was done yesterday showed EF of 15-20% with severe left ventricular hypertrophy. ASSESSMENT: 1. Acute on chronic systolic congestive heart failure. 2. Acute hypoxic respiratory failure secondary to CHF exacerbation. 3. Suspected left lower lobe pneumonia. 4. COPD questionable in exacerbation. 5. Endstage renal disease. 6. The patient is status post pacemaker. 7. Hypotension on presentation. Likely from cardiogenic shock with possible superimposed sepsis. 8. MRSA positive sputum likely the cause of the pneumonia. 9. Respiratory alkalosis. Ventilation is being managed by Pulmonary Medicine. Will defer any recommendations to them. 10. CKD IV. Baseline creatine worsened likely from cardiorenal physiology. Continue with Lasix GENERAL PLAN: We will going to continue with the current antibiotics until we have blood culture results. If the blood cultures are negative we will stop the cefepime and continue only on the vancomycin for possible MRSA pneumonia. Will also continue with the current furosemide drip and follow further recommendations from both Pulmonary Medicine and Cardiology. [facility]
[2016-05-14 11:17] LABS: BILIRUBIN URINE NEGATIVE (NEGATIVE); BLOOD URINE NEGATIVE (NEGATIVE); COLOR YELLOW; GLUCOSE URINE NEGATIVE (NEGATIVE); LEUKOCYTES URINE NEGATIVE (NEGATIVE); NITRITE URINE NEGATIVE (NEGATIVE); PROTEIN URINE NEGATIVE (NEGATIVE); SP GRAVITY URINE 1.006; TURBIDITY URINE CLEAR (CLEAR); UROBILINOGEN URINE NORMAL (NORMAL)
[2016-05-14 11:19] LABS: UR EPITHELIAL CELLS <10 /HPF (<10); URINE BACTERIA NEGATIVE /HPF; URINE RBC <10 /HPF (<10); URINE WBC <10 /HPF (<10)
[2016-05-14 11:33] LABS: UR CREAT RANDOM 22.7 mg/dL (14-26); UR PROT RANDOM 6.6 mg/dL
--- NOTE | 2016-05-14 13:19 | Diag Imaging Result Document ---
PROCEDURE NAME: US RENAL 2 (RETROPER) COMPLETE - 05/14/2016 RENAL ULTRASOUND: COMPARISON: 10/05/2015. FINDINGS: The left kidney is obscured due to the patient's condition and inability to move. The right kidney is nonobstructed. There are some right renal cysts, stable from prior. The largest is at the lower pole measuring about 5.3 cm. The right kidney measures 10.3 x 5.5 x 4.1 cm. Urinary bladder is collapsed by a Nicolas catheter. No abdominal free fluid. IMPRESSION: Several right renal cysts. Otherwise, no complication of the right kidney. The left kidney is obscured due to the patient's condition and position.
--- NOTE | 2016-05-14 13:24 | CONSULTATION ---
DATE OF CONSULTATION: 05/14/2016 REASON FOR CONSULTATION: CKD on NGUYỄN, medication assistance and heart failure. HISTORY OF PRESENT ILLNESS: Mr. Joseph is a 75-year-old black man, who is currently on the ventilator and unable to provide any history. I saw him in January of 2015, at which time he had a baseline creatinine of 2.5 and had been stable at that level. He at that time presented with decompensated heart failure, and we followed him throughout his hospitalization. He was last seen in our office in November 2015, and his last lab data in our office was collected on November 16, at which time his potassium was 4.0, bicarbonate 16, BUN 36 and creatinine 2.2. He was admitted to the hospital on this occasion on yesterday, the -. He had respiratory failure and was intubated and placed on the mechanical ventilator. He is currently sedated and unresponsive. History is therefore entirely obtained from the chart. He has been able to be weaned down such that he is on 35% FiO2 currently and is oxygenating well with this setting. He has been treated with IV diuretics overnight and is 5 L negative. PAST MEDICAL HISTORY: 1. Ischemic cardiomyopathy with LVEF of 15% to 20%. 2. History of ventricular tachyarrhythmias. 3. Chronic atrial fibrillation. 4. Hypertension. 5. Hyperlipidemia. 6. CKD as above. 7. Aortic aneurysm status post endograft repair. 8. GERD. SOCIAL HISTORY: Prior tobacco and ongoing tobacco. FAMILY HISTORY/REVIEW OF SYSTEMS: Otherwise not obtainable by me. PHYSICAL EXAMINATION: Vital Signs: Blood pressure 117/87, heart rate 85, respirations 19, afebrile. General: He is an elderly man on the ventilator, sedated, unresponsive. Skin: Warm and dry. HEENT: Conjunctivae are pink. Pupils are equal. Oropharynx is dry. Neck: Supple. Neck veins are distended at 6 to 8 cm. Trachea is midline. Heart: Regular with no audible gallops or murmurs. Lungs: Have equal breath sounds. No crackles or wheezes anteriorly. Abdomen: Soft, nontender. Bowel sounds are diminished. No organomegaly or masses or bruits. Extremities: Have 2+ edema. No clubbing or cyanosis. LABORATORY DATA: A pH of 7.56, pCO2 23, PO2 128 on 35% FiO2. Hemoglobin 12.4. Sodium 138, potassium 4.4, chloride 98, bicarbonate 18, BUN 67, creatinine 3.4. IMPRESSION: Acute kidney injury overlying chronic kidney disease. Again, baseline creatinine is approximately 2 to 2.5 and he presented with a creatinine of 3.9. Creatinine is improved to 3.4 with treatment of his heart failure. This led support to the diagnosis of prerenal azotemia secondary to decompensated systolic heart failure. His blood pressure is acceptable. I have reviewed his medication and no adjustments are required with regard to his kidney disease. Pharmacy is following his vancomycin dosing. We will check urine electrolytes. Repeat renal ultrasound. We will follow.
[2016-05-14] MEDS: SODIUM CHLORIDE 0.9% INJ SCH (20:01)
[2016-05-14] MEDS: PROTONIX IV SCH (20:01)
[2016-05-14] MEDS: PRAVACHOL PO SCH (20:01)
[2016-05-15] MEDS: MAXIPIME 1 GM/NS 50 ML IV SCH (02:12)
[2016-05-15] MEDS: LASIX 100 MG in NS 90 ML IV SCH ×3 (02:33→20:14)
[2016-05-15] MEDS: DUONEB (A & A) INH SCH ×6 (02:43→22:49)
[2016-05-15] MEDS: DIPRIVAN 1% 100 ML IV SCH ×2 (04:10→10:57)
[2016-05-15 04:32] LABS: ALLEN TEST YES; BE 2.4 mmoll (-3.0-3.0); BLOOD TYPE ARTERIAL; DRAW SITE R RADIAL; METHB 1.3 % (0.0-1.5); O2(CT) 19.2 mL/dL (15.0-23.0); PCO2(98.6) 38 mmHg (35-45); PO2(98.6) 131 mmHg (60-100); SAMPLE BLOOD; SRATE 8 BPM; TVOL 700 mL; pH(98.6) 7.45 (7.35-7.45)
[2016-05-15 04:43] LABS: MODALITY VENTILATOR
[2016-05-15 04:58] LABS: HEMATOCRIT 41.1 % (42.0-52.0); HEMOGLOBIN 13.4 g/dL (14.0-18.0); MCH 30.9 PG (27-31); MCHC 32.6 g/dL (33-37); MCV 94.9 FL (81-99); MPV 10.9 FL (7.4-10.4); RBC 4.33 XMIL (4.7-6.1)
[2016-05-15 05:16] LABS: INR 2.26; PROTIME 24.2 Seconds (9.2-11.7)
[2016-05-15 05:25] LABS: ALBUMIN 3.2 g/dL (3.5-5.0); CALCIUM 9.4 mg/dL (8.8-10.2); POTASSIUM 4.2 mmol/L (3.5-5.1); TOTAL BILIRUBIN 1.05 mg/dL (0.20-1.00); TOTAL PROTEIN 7.4 g/dL (6.3-8.3)
--- NOTE | 2016-05-15 07:51 | Diag Imaging Result Document ---
PROCEDURE NAME: CHEST-PORTABLE - 05/15/2016 AP PORTABLE CHEST AT 0500 HOURS: FINDINGS: There is an endotracheal tube with its tip at the thoracic inlet and an NG tube which apparently passes below the diaphragm. There are atelectatic changes present in the lingula. This has not changed significantly since 05/14/2016. The right lung remains clear. IMPRESSION: Stable chest.
--- NOTE | 2016-05-15 11:49 | PROGRESS NOTE ---
DATE: 05/15/2016 SUBJECTIVE: Today, Mr. Joseph continues to be intubated. There is a family member in the room at the time of the encounter. OBJECTIVE: Vital Signs: Blood pressure is 101/67, pulse of 86, respirations are 22, temperature is 98 degrees. General Examination: Mr. Joseph is a 75-year-old, male. He was in bed, continues to be intubated, synchronizing very well with the ventilator. Neck: Supple. Chest: Good air entry bilateral. No crepitations. A few transmitted sounds from the ventilator. Cardiovascular: Regular rate and rhythm with occasional extrasystole beats. There is a pronounced P2. Abdomen: Soft, nontender. Extremities: About 2+ pedal edema bilaterally. Looks a whole lot better than yesterday. CONFORMAL PAD FORMER: Patient is intubated and sedated. Laboratory Data: WBC is 9.71, hemoglobin is 13.4, platelet count of 182,000. Chemistries reviewed, abnormally just the renal function consistent with his CKD. ASSESSMENT: 1. Acute on chronic systolic congestive heart failure. 2. Acute hypoxemic respiratory failure secondary to congestive heart failure exacerbation. 3. Suspected left lower lobe pneumonia. Patient continues to be on antibiotics. Methicillin- resistant Staphylococcus aureus positive sputum. The patient is getting vancomycin. The other antibiotics have been discontinued. 4. Chronic kidney disease stage IV to V. The creatinine has slightly worsened and I think this is due to hypoperfusion from the cardiogenic shock. 5. Hypotension on presentation, likely from cardiogenic shock. GENERAL PLAN: 1. Cefepime has been discontinued. We are going to continue with the vancomycin for the MRSA pneumonia. 2. We will follow up with further recommendations from pulmonary medicine as to when patient can be extubated. 3. Creatinine is slightly improving. I think this is due to cardiorenal physiology and as we remove more fluid, probably that would improve to the baseline.
--- NOTE | 2016-05-15 12:06 | PROGRESS NOTE ---
DATE: 05/15/2016 CHIEF COMPLAINT: Shortness of breath. SUBJECTIVE: Mr. Joseph remains intubated. However, his number in general look much better. He is moving his arms right now. He is slowly waking up after propofol was discontinued. He does not appear to be in distress. OBJECTIVE: Vital signs: Blood pressure 101/67, temperature 98 degrees, pulse 86, respirations 12. General: He moves randomly his arms and legs. He reacts to pain. HEENT: Otherwise unremarkable. Chest: Good breath sounds especially in the right lung field. Cardiac: Heart sounds are irregularly irregular. Abdomen: Soft, not distended, nontender. Extremities: Showed no obvious edema at this time. Edema appears to have resolved. Neurological: He moves randomly his 4 extremities. Skin: Shows no rashes. LABORATORY: Result of sputum culture is positive for Staphylococcus aureus, MRSA positive. Chemistry today: Sodium 139, potassium 4.2. His BUN went up to 72. Creatinine went down to 3.2. Potassium is 4.2, chloride 98, carbon dioxide 25. Albumin is 3.2. His pH is 7.45, pCO2 is 38, pO2 is 131 on 35% FiO2. White count 9610, hemoglobin 13.4. IMAGING: Chest x-ray today shows stable chest with good aeration of the right lung. There are atelectatic changes present in the lingula. TELEMETRY: His telemetry shows atrial fibrillation. IMPRESSION: 1. Patient presented with acute respiratory failure secondary to severe chronic congestive systolic heart failure. He also has chronic kidney disease. 2. History of chronic atrial fibrillation. 3. History of severe coronary artery disease. 4. MRSA bronchitis, rule out pneumonia. RECOMMENDATION: At this point in time, will probably consider switching his Lasix to a lower dose. We are going to switch over to probably 120 mg twice a day from his current Lasix drip. We will see how he does. He has demonstrated very good diuresis on review of his intake and output. His urine output has been extremely good, and right now he has no demonstrable edema. Further evaluation or intervention will depend on his clinical response. We will follow him along. [facility]
--- NOTE | 2016-05-15 13:04 | PROGRESS NOTE ---
DATE: 05/15/2016 DATE AND TIME: 05/15/2016 at 0800 hours. SUBJECTIVE: Patient currently resting in bed. He is sedated. He is mechanically ventilated. OBJECTIVE: Vital Signs: Temperature 98.0 degrees, pulse 86, respiratory rate 22, blood pressure 101/67. Intake 1.6 L. Output 6.3 L. General: This is an elderly gentleman currently sedated and unresponsive. He is mechanically ventilated. HEENT: Normocephalic, atraumatic. He is orally intubated. Neck: Thick, supple. Positive JVD noted. Cardiovascular: Irregular rate and rhythm. No murmur appreciated. Pulmonary: Equal excursion. Mechanically ventilated. Abdomen: Soft, with positive bowel sounds, hypoactive. Extremities: 2+ pretibial edema with upper extremity edema and dependent edema to the backs of the hips. Extremities are warm. No clubbing or cyanosis noted. Integumentary: Skin is warm and dry. There is no rash or lesion appreciated. LAB DATA: WBC of 9.7, hemoglobin 13.4, sodium 139, potassium 4.2, CO2 25, BUN 72, creatinine 3.2, calcium 9.4. ASSESSMENT AND PLAN: Acute overlying chronic kidney disease. His baseline creatinine is 2 to 2.5. He has improved overnight. His urine output has picked up appreciably. We will continue to monitor. There are no changes required from a renal standpoint, today. Check labs in the morning. Seen, data reviewed, discussed with Anu Mariee on 05/15/16. I agree with the above assessment and plan of care. rg Dictated by RUMA Galindo for Ej Gill MD [facility]
[2016-05-15 14:09] LABS: ALLEN TEST YES; BE 5.1 mmoll (-3.0-3.0); BLOOD TYPE ARTERIAL; DRAW SITE R RADIAL; METHB 1.5 % (0.0-1.5); O2(CT) 18.7 mL/dL (15.0-23.0); PCO2(98.6) 33 mmHg (35-45); PO2(98.6) 125 mmHg (60-100); SAMPLE BLOOD; SAO2 99.6 % (95.0-100.0); THB 13.7 g/dL (11.5-17.4); pH(98.6) 7.53 (7.35-7.45)
[2016-05-15 14:11] LABS: MODALITY VENTILATOR
[2016-05-15] MEDS: VANCOMYCIN 1,500 MG in NS 250 ML IV SCH (16:45)
[2016-05-15] MEDS: SODIUM CHLORIDE 0.9% INJ SCH (20:30)
[2016-05-15] MEDS: PROTONIX IV SCH (20:30)
[2016-05-15] MEDS: PRAVACHOL PO SCH (20:30)
[2016-05-16] MEDS: DUONEB (A & A) INH SCH ×6 (03:31→22:57)
[2016-05-16] MEDS ORDERED: VANCOMYCIN 1,500 MG in NS 250 ML IV SCH (04:00)
[2016-05-16 05:59] LABS: PROTIME 21.3 Seconds (9.2-11.7)
--- NOTE | 2016-05-16 06:14 | Diag Imaging Result Document ---
PROCEDURE NAME: CHEST-PORTABLE - 05/16/2016 PORTABLE CHEST: COMPARISON: Compared to 05/15/2016. FINDINGS: Sternal wires are present. The patient has a left-sided pacemaker. There are increased interstitial markings in the lower left lung which remain. The left hemidiaphragm is elevated. The right lung remains clear. A nasogastric tube overlies the esophagus and stomach. IMPRESSION: Stable chest.
[2016-05-16 06:38] LABS: ALBUMIN 3.1 g/dL (3.5-5.0); CALCIUM 9.6 mg/dL (8.8-10.2); POTASSIUM 3.8 mmol/L (3.5-5.1); TOTAL BILIRUBIN 1.15 mg/dL (0.20-1.00); TOTAL PROTEIN 7.1 g/dL (6.3-8.3)
[2016-05-16] MEDS: LASIX 100 MG in NS 90 ML IV SCH (06:39)
[2016-05-16] MEDS ORDERED: LASIX IV SCH (10:45)
[2016-05-16 11:04] LABS: ALLEN TEST YES; BE 6.6 mmoll (-3.0-3.0); BLOOD TYPE ARTERIAL; DRAW SITE L RADIAL; METHB 1.4 % (0.0-1.5); O2(CT) 16.8 mL/dL (15.0-23.0); PCO2(98.6) 44 mmHg (35-45); PO2(98.6) 55 mmHg (60-100); SAMPLE BLOOD; SAO2 90.7 % (95.0-100.0); THB 13.7 g/dL (11.5-17.4); pH(98.6) 7.46 (7.35-7.45)
[2016-05-16 11:05] LABS: MODALITY CANNULA
--- NOTE | 2016-05-16 11:36 | PROGRESS NOTE ---
DATE: 05/16/2016 SUBJECTIVE: The patient is a little bit sleepy, but reports feeling fine. No chest pain. No difficulty in breathing. No fever or chills. OBJECTIVE: Vital Signs: Temperature 97.0, heart rate 92, respiratory rate 28, blood pressure 118/73, O2 saturation 92% on 4 L nasal cannula. General Examination: This is a 75-year-old, chronically ill-looking, male, lying in bed, in no acute distress. HEENT: Head is normocephalic, atraumatic. Anicteric sclerae, pale conjunctivae. Mucous membranes moist. Neck: Supple. No JVD noted. No carotid bruits. No lymphadenopathy. No thyromegaly. Cardiovascular: S1 and S2 heard. No murmurs, gallops, or rubs. Regular rate and rhythm. Respiratory: A few bibasilar crackles. Patient is not using any accessory muscles or having work of breathing. Abdomen: Soft, nontender to palpation. Bowel sounds present. No organomegaly. Extremity: 2+ pitting edema in both lower extremities. Peripheral pulses present in both legs. Neurological: Patient moves 4 extremities and answers questions. LABORATORY DATA: There are no labs from today, except INR 2.0. ASSESSMENT: 1. Acute on chronic systolic congestive heart failure. 2. Acute hypoxemic respiratory failure, secondary to congestive heart failure. 3. Methicillin resistant Staph aureus, left lower lobe pneumonia. 4. Chronic kidney disease stage 5. 5. Hypotension on presentation from cardiogenic shock. PLAN: The patient has been successfully extubated yesterday. Today he is requiring 4 L of oxygen by nasal cannula. We will continue with the same management. Today, Lasix drip has been stopped, because clinically he had some crackles on physical examination, and there is edema in both lower extremities. We prefer to continue with Lasix at this time, 40 mg IV q.12 hours. For pneumonia we isolated in the sputum MRSA, so patient was started on vancomycin and cefepime was discontinued. For chronic kidney disease stage 5, Dr. Gill from Nephrology is following and the renal function continues slowly to improve. The patient is overall doing good. Admitted for acute respiratory failure secondary to CHF exacerbation. Patient is doing good. Extubated already. We will consult physical therapy and transfer this patient out to regular floor.
--- NOTE | 2016-05-16 12:43 | PROGRESS NOTE ---
DATE: 05/16/2016 CHIEF COMPLAINT: Shortness of breath, swelling. SUBJECTIVE: Mr. Joseph was successfully extubated. He is sitting upright in bed, fully awake, follows commands, drinking some fluid out of a cup. He has no pain, no complaints. His rhythm remains atrial fibrillation. OBJECTIVE: Vital signs: His blood pressure now is 99/64, pulse 82, respirations 18, temperature 97. General: He is awake, follows commands. HEENT: Unremarkable. Chest: Diminished breath sounds at the bases. Cardiac: Heart sounds are slightly irregular. No gallop or murmur. Abdomen: Nontender, soft, no masses, no hepatomegaly. Extremities: No edema. Pulses are diminished. Neurological: Follows commands. He moves 4 extremities. BLOOD WORK: His sodium today is 144, potassium 3.8, BUN 74, creatinine 2.8. His blood gas on nasal cannula FiO2 of 0.32 pO2 is 55, CO2 44, pH 7.46. His albumin is 3.1. IMPRESSION: 1. Patient who presented with acute respiratory failure. 2. Chronic systolic heart failure, cardiomyopathy--ischemic. 3. Atrial fibrillation, chronic. 4. Chronic kidney disease with acute kidney insufficiency. RECOMMENDATION: At this point in time, we will continue present therapy. I am going to go ahead and switch him to Lasix IV 120 mg twice a day. We will put him on low-dose digoxin. We will also initiate probably a low dose of SUKHI inhibitor as long as his potassium is acceptable. We may have to watch that very closely because he does have significant renal dysfunction. We will follow him along. He might need transfer out of the unit later on today.
[2016-05-16] MEDS: LASIX IV SCH (13:15)
[2016-05-16] MEDS: LANOXIN IV SCH ×2 (13:16→18:36)
[2016-05-16] MEDS: SYMBICORT 160/4.5 MICROGM INHALER INH SCH ×2 (16:01→22:58)
--- NOTE | 2016-05-16 16:51 | PROGRESS NOTE ---
DATE: 05/16/2016 SUBJECTIVE: Patient is sitting up in bed. He continues to be hoarse after extubation but he is breathing without difficulty. OBJECTIVE: Vital Signs: Temperature 98.2 degrees, pulse 75, respiratory rate 18, blood pressure 99/64. Intake and output: Intake 921 mL output 4.1 L. General: This is an elderly, gentleman sitting up in bed. He is awake and alert. He is appropriate and trying to talk but he is quite hoarse. HEENT: Normocephalic, atraumatic. Oral mucosa is moist. Neck: Supple. Trachea midline. Trace JVD noted. Cardiovascular: Irregular rate and rhythm. No murmur is appreciated. Pulmonary: He has equal excursion. He is clear bilaterally. There is no overt wheeze or rhonchi noted. Abdomen: Soft with positive bowel sounds. : Not inspected. He is voiding. Extremities: Trace pretibial edema. He is moving all extremities without difficulty. Integumentary: Skin is warm and dry. There is no rash or lesion. LAB DATA: Sodium 144, potassium 3.8, CO2 24, BUN 74, creatinine 2.8, albumin 3.1. ASSESSMENT AND PLAN: 1. Acute overlying chronic kidney disease with continued improvement. His creatinine is down to 2.8. His baseline is 2 to 2.5. He was extubated and has been transferred out of the intensive care unit, up to the regular medical floor. We will continue to monitor labs. I have no changes today. 2. Fluid volume. He is about 3 L negative overnight. Continue to monitor closely. 3. Hypertension. Well controlled. Seen, data reviewed, discussed with Anu Mariee on 05/16/16. I agree with the above assessment and plan of care. rg Dictated by RUMA Galindo for Ej Gill MD [facility]
[2016-05-16] MEDS: SODIUM CHLORIDE 0.9% INJ SCH (20:38)
[2016-05-16] MEDS: PROTONIX IV SCH (20:38)
[2016-05-16] MEDS: PRAVACHOL PO SCH (20:38)
[2016-05-17] MEDS: DUONEB (A & A) INH SCH ×6 (03:24→23:33)
[2016-05-17 03:47] LABS: ALLEN TEST YES; BE 8.8 mmoll (-3.0-3.0); BLOOD TYPE ARTERIAL; DRAW SITE R RADIAL; METHB 1.5 % (0.0-1.5); O2(CT) 18.8 mL/dL (15.0-23.0); PCO2(98.6) 27 mmHg (35-45); PO2(98.6) 174 mmHg (60-100); SAMPLE BLOOD; THB 13.7 g/dL (11.5-17.4)
[2016-05-17 03:50] LABS: MODALITY NRB; pH(98.6) 7.64 (7.35-7.45)
[2016-05-17] MEDS: LANOXIN IV SCH ×2 (05:05→12:35)
[2016-05-17] MEDS: LASIX IV SCH (05:06)
[2016-05-17] MEDS: SYMBICORT 160/4.5 MICROGM INHALER INH SCH ×3 (07:26→20:45)
[2016-05-17 07:27] LABS: INR 2.13; PROTIME 22.7 Seconds (9.2-11.7)
[2016-05-17 07:28] LABS: BASO% 0.1 % (0.0-0.8); EOS# 0.06 X1000 (0.0-0.7); EOS% 0.4 % (0.0-10.0); HEMATOCRIT 45.8 % (42.0-52.0); HEMOGLOBIN 14.7 g/dL (14.0-18.0); IMM GRAN# 0.07 X1000 (0.0-0.04); IMM GRAN% 0.5 % (0.0-0.5); LYMPH# 0.66 X1000 (1.2-3.4); LYMPH% 4.9 % (20.5-51.1); MANUAL DIFF NEEDED? YES; MCH 30.7 PG (27-31); MCHC 32.1 g/dL (33-37); MCV 95.6 FL (81-99); MONO# 0.74 X1000 (0.11-0.59); MONO% 5.5 % (1.7-9.3); NEUT% 88.6 % (42.2-75.2); PLT 153 X1000 (130-400); RBC 4.79 XMIL (4.7-6.1)
[2016-05-17 07:37] LABS: ALBUMIN 3.6 g/dL (3.5-5.0); CALCIUM 9.9 mg/dL (8.8-10.2); POTASSIUM 3.7 mmol/L (3.5-5.1); TOTAL BILIRUBIN 2.72 mg/dL (0.20-1.00); TOTAL PROTEIN 8.5 g/dL (6.3-8.3)
--- NOTE | 2016-05-17 07:47 | Diag Imaging Result Document ---
PROCEDURE NAME: CHEST-PORTABLE - 05/17/2016 AP PORTABLE CHEST ERECT AT 0550 HOURS: FINDINGS: The inspiration is suboptimal. There is subsegmental atelectasis in both bases. There is cardiomegaly. IMPRESSION: Cardiomegaly and atelectasis.
[2016-05-17 07:54] LABS: BANDS 6 % (0-1); LYMPHS 6 % (21-51); MONO 4 % (1-9)
--- NOTE | 2016-05-17 09:24 | PROGRESS NOTE ---
DATE: 05/17/2016 SUBJECTIVE: He has no new complaints today. Shortness of breath has resolved. No chest pain. OBJECTIVE: Blood pressure 116/59, heart rate 80, respiration 22, afebrile. Intake 500 mL. Output 1.9 L. PHYSICAL EXAMINATION: No acute distress. Skin is warm and dry. Conjunctivae are pink. Oropharynx not examined. Neck veins not distended. Heart is regular with systolic murmur. Lungs have equal breath sounds. No crackles or wheezes. The abdomen is soft and nontender with normal bowel sounds. Extremities have no edema, clubbing, or cyanosis. LABORATORY DATA: Sodium 143, potassium 3.7, chloride 98, bicarbonate 27. BUN 68, creatinine 2.3. Hemoglobin 14.7. IMPRESSION: Acute kidney injury overlying chronic kidney disease secondary to cardiorenal syndrome. Significant improvement over the last 3 days. His volume status is much better as well. I will change his furosemide to 80 mg orally once a day and observe his response. Electrolytes are acceptable. Acid-base status is acceptable as well.
--- NOTE | 2016-05-17 09:33 | PROGRESS NOTE ---
DATE: 05/17/2016 CHIEF COMPLAINT: Shortness of breath and irregular heartbeat. SUBJECTIVE: Mr. Joseph is sitting upright eating breakfast. He definitely looks a lot better. OBJECTIVE: Vital signs: His heart rate is ranging from 90 to 100, respirations 22, blood pressure 116/59, and temperature 97.7. General: He is awake and follows commands. He is helping himself eating breakfast. HEENT: Unremarkable. Respiratory: Chest shows diffusely diminished breath sounds. No rales are noted. Cardiovascular: Heart sounds are irregularly irregular. No gallop or murmur is noted. Gastrointestinal: The abdomen is nontender. Extremities: The extremities show no significant edema. His blood work today shows a sodium of 143, potassium 3.7, BUN 68, and creatinine 2.3. His blood gas earlier this morning on a nonrebreather mask showed a pO2 of 134, pH of 7.64, and CO2 of 27. IMPRESSION AND PLAN: 1. The patient presented with acute respiratory failure secondary to chronic systolic heart failure ischemic cardiomyopathy exacerbation. 2. Acute on chronic kidney dysfunction. Probably related to low cardiac output. This has improved. 3. History of sick sinus syndrome status-post pacemaker implantation and chronic atrial fibrillation. 4. The patient has Methicillin-resistant Staphylococcal Aureus bronchitis. RECOMMENDATION: At this point in time I would continue with the present dosage of diltiazem and low dose digoxin. We will follow him along. His overall prognosis is really very guarded. I would suggest to consider a rehab facility for him to convalesce from this acute process and I would also suggest to discuss with the patient and family end of life measures since his overall prognosis is really very poor. Thank you again for the opportunity to participate in his evaluation.
[2016-05-17] MEDS: CARDIZEM PO SCH ×3 (12:37→23:58)
--- NOTE | 2016-05-17 15:27 | PROGRESS NOTE ---
DATE: 05/17/2016 SUBJECTIVE: Patient is still sleepy and breathing faster. Reports no chest pain. No shortness of breath. No fever or chills. But I think this patient is not a good historian and this information that he provides is not probably accurate because he looks to be in a little bit of respiratory distress. OBJECTIVE: Vital Signs: Temperature 98 degrees, heart rate 82, respiratory rate 16, blood pressure 108/71. O2 saturation 98% on 3 L nasal cannula. General Examination: This is a chronically ill-looking and frail, 75-year-old male, lying in bed, in no acute distress. HEENT: Head is normocephalic, atraumatic. Anicteric sclerae and pale conjunctivae. Mucous membranes moist. Neck: Supple. No JVD noted. No carotid bruits. No lymphadenopathy. No thyromegaly. Cardiovascular: S1, S2 heard. Irregularly irregular. No murmur or gallops noted. Respiratory: Decreased breath sounds globally. No rales or wheezing noted. Patient is not using any accessory muscles or having work of breathing although he looks tachypneic. Abdomen: Soft, nontender to palpation. Bowel sounds present. No organomegaly. Extremities: No clubbing, cyanosis, or edema. Peripheral pulses present in both legs. Neurological: Patient is sleepy but moves 4 extremities. LABORATORY DATA: White cell count 13.46, hemoglobin 14.7, hematocrit 45.8, platelets 153,000. ABG shows pH 7.64 with pCO2 27, PO2 174 that was on non-rebreather mask and BMP unremarkable except BUN 68, creatinine 2.3. ASSESSMENT AND PLAN: 1. Acute on chronic systolic heart failure. 2. Acute hypoxemic respiratory failure secondary to congestive heart failure. 3. Left lower lobe left lower lobe pneumonia MRSA. 4. Chronic kidney disease, stage 5. 5. Hypotension on presentation from cardiogenic shock. PLAN: Patient has been successfully extubated yesterday but is still requiring 4-5 L of oxygen by nasal cannula. ABG of course shows tachypnea with respiratory alkalosis. At this time, we are going to continue with Lasix. Now there is no lower extremity edema noted. For MRSA we will continue with vancomycin. For CKD Dr. Gill is following this patient. Overall this patient is not doing good. Patient has a poor prognosis so we are planning to meet with family tomorrow to explain to them what will be the goals of care. He will definitively need rehab at discharge. JENNIFER
[2016-05-17] MEDS: VANCOMYCIN 1,500 MG in NS 250 ML IV SCH (18:04)
[2016-05-17] MEDS: PRAVACHOL PO SCH (20:43)
[2016-05-17] MEDS: SODIUM CHLORIDE 0.9% INJ SCH (20:44)
[2016-05-17] MEDS: PROTONIX IV SCH (20:44)
[2016-05-18] MEDS: DUONEB (A & A) INH SCH ×6 (03:12→22:56)
[2016-05-18 04:06] LABS: ALLEN TEST YES; BE 4.8 mmoll (-3.0-3.0); BLOOD TYPE ARTERIAL; DRAW SITE L RADIAL; METHB 1.6 % (0.0-1.5); O2(CT) 16.5 mL/dL (15.0-23.0); PCO2(98.6) 48 mmHg (35-45); PO2(98.6) 89 mmHg (60-100); SAMPLE BLOOD; SAO2 98.6 % (95.0-100.0); THB 12.4 g/dL (11.5-17.4); pH(98.6) 7.41 (7.35-7.45)
[2016-05-18 04:11] LABS: MODALITY VENTIMASK
[2016-05-18] MEDS: CARDIZEM PO SCH ×3 (05:17→18:53)
[2016-05-18 06:45] LABS: INR 1.74; PROTIME 18.5 Seconds (9.2-11.7)
[2016-05-18 06:54] LABS: BASO% 0.1 % (0.0-0.8); EOS# 0.27 X1000 (0.0-0.7); EOS% 1.8 % (0.0-10.0); HEMATOCRIT 38.4 % (42.0-52.0); HEMOGLOBIN 12.1 g/dL (14.0-18.0); IMM GRAN# 0.05 X1000 (0.0-0.04); IMM GRAN% 0.3 % (0.0-0.5); LYMPH# 0.58 X1000 (1.2-3.4); LYMPH% 3.9 % (20.5-51.1); MANUAL DIFF NEEDED? YES; MCHC 31.5 g/dL (33-37); MCV 98.5 FL (81-99); MONO# 1.01 X1000 (0.11-0.59); MONO% 6.8 % (1.7-9.3); MPV 10.7 FL (7.4-10.4); NEUT% 87.1 % (42.2-75.2); PLT 169 X1000 (130-400)
[2016-05-18 07:02] LABS: CALCIUM 8.6 mg/dL (8.8-10.2); TOTAL BILIRUBIN 2.06 mg/dL (0.20-1.00); TOTAL PROTEIN 6.7 g/dL (6.3-8.3)
[2016-05-18] MEDS: SYMBICORT 160/4.5 MICROGM INHALER INH SCH ×2 (08:16→20:11)
[2016-05-18 08:23] LABS: LYMPHS 4 % (21-51); MONO 2 % (1-9); NRBC 2 % (0-0)
[2016-05-18 08:24] LABS: BANDS 2 % (0-1)
--- NOTE | 2016-05-18 08:27 | Diag Imaging Result Document ---
PROCEDURE NAME: CHEST-PORTABLE - 05/18/2016 PORTABLE CHEST 0610 HOURS: COMPARISON: 05/17/2016. FINDINGS: Inspiration is deeper compared to the previous exam with decreased subsegmental atelectasis at the lung bases. There is mild atelectasis or infiltrate at the left base. The remainder of the lungs appear grossly clear. There is no substantial pleural effusion, or pneumothorax identified. There is mild cardiomegaly. There is transvenous cardiac pacemaker again seen. IMPRESSION: Deeper inspiration compared to prior with decrease in basilar atelectasis. There is mild atelectasis or infiltrate at the left base.
[2016-05-18] MEDS: LASIX PO SCH (08:48)
[2016-05-18] MEDS: LANOXIN IV SCH (08:48)
--- NOTE | 2016-05-18 12:39 | PROGRESS NOTE ---
DATE: 05/18/2016 SUBJECTIVE: Patient is a little bit more alert today. He reports feeling fine at the night. Denies any difficulty in breathing or chest pain. Asked when he is going back home. OBJECTIVE: Vital Signs: Temperature 98.0 degrees, heart rate 78, respiratory rate 20, blood pressure 198/51, O2 saturation 100% on Venturi mask. General examination: This is a chronically ill-looking, frail, 75-year-old, male, lying in bed in no acute distress. HEENT: Head is normocephalic, atraumatic. Anicteric sclerae and pale conjunctivae. Mucous membranes moist. Neck: Supple. No JVD noted. No carotid bruits. No lymphadenopathy. No thyromegaly. Cardiovascular Exam: S1, S2 heard. Irregularly irregular. No murmurs, gallops, or rubs. Respiratory Exam: Decreased breath sounds globally. There are no rales or wheezing noted. Today patient is not using any accessory muscles or having work of breathing. Abdomen: Soft, nontender to palpation. Bowel sounds present. No organomegaly. Extremities: No clubbing, cyanosis, or edema. Peripheral pulses present in both legs. Neurological exam: Patient is sleepy. Able to move 4 extremities. LABORATORY DATA: White cell count 14.89, hemoglobin 12.1, hematocrit 38.4, platelets 169. ABG shows pH 7.41, pCO2 48, PO2 of 89. BMP unremarkable except BUN 64 and creatinine 2.0. ASSESSMENT: 1. Acute on chronic systolic heart failure. 2. Acute hypoxemic respiratory failure secondary to congestive heart failure. 3. Left lower lobe pneumonia, methicillin-resistant Staphylococcus aureus. 4. Chronic kidney disease stage V. 5. Hypotension on presentation for cardiogenic shock. PLAN: The patient has been extubated 2 days ago, and he is still requiring oxygen by Ventimask. Clinically, the patient is feeling better with less shortness of breath and he is more alert definitely. At this point, the ABG shows a good gas exchange. At this point, we are going to continue with the same management. The patient has been receiving Lasix IV that has been changed to oral 80 mg p.o. daily as per nephrology. For MRSA pneumonia, white cell count is getting higher. He will continue with vancomycin. Regarding chronic kidney disease, creatinine is getting better. Dr. Rosales is following this patient. He is not more hypotensive anymore. Because of this leukocytosis, we ordered a CT of the chest, abdomen and pelvis that did not show any clearing of pneumonia, but we will prefer definitely to continue with vancomycin. For this chronic atrial fibrillation, because of the anemia, I guess this is a relative contraindication for anticoagulation. So, at this point, we prefer to continue helping holding Xarelto. Physical therapy has been consulted, and I think this patient will be ready to go to rehabilitation facility because of physical deconditioning on Friday.
[2016-05-18] MEDS: PRAVACHOL PO SCH (20:37)
[2016-05-18] MEDS: SODIUM CHLORIDE 0.9% INJ SCH (20:37)
[2016-05-18] MEDS: PROTONIX IV SCH (20:37)
[2016-05-19] MEDS: CARDIZEM PO SCH ×4 (00:50→18:42)
[2016-05-19] MEDS: DUONEB (A & A) INH SCH ×6 (02:51→23:17)
[2016-05-19 06:32] LABS: MANUAL DIFF NEEDED? NO
[2016-05-19 06:36] LABS: EOS# 0.16 X1000 (0.0-0.7); EOS% 1.3 % (0.0-10.0); HEMATOCRIT 37.7 % (42.0-52.0); HEMOGLOBIN 12.2 g/dL (14.0-18.0); IMM GRAN# 0.06 X1000 (0.0-0.04); IMM GRAN% 0.5 % (0.0-0.5); LYMPH# 0.54 X1000 (1.2-3.4); LYMPH% 4.3 % (20.5-51.1); MCH 31.4 PG (27-31); MCHC 32.4 g/dL (33-37); MCV 97.2 FL (81-99); MONO# 1.18 X1000 (0.11-0.59); MONO% 9.3 % (1.7-9.3); MPV 10.3 FL (7.4-10.4); NEUT% 84.6 % (42.2-75.2); PLT 168 X1000 (130-400); RBC 3.88 XMIL (4.7-6.1)
[2016-05-19 07:02] LABS: CALCIUM 8.8 mg/dL (8.8-10.2); POTASSIUM 4.1 mmol/L (3.5-5.1)
--- NOTE | 2016-05-19 07:11 | Diag Imaging Result Document ---
PROCEDURE NAME: CHEST-1 VIEW - 05/19/2016 PORTABLE CHEST: COMPARISON: Compared to 05/18/3016. FINDINGS: Sternal wires are present and there is a left-sided pacemaker. The patient is rotated to the left. The heart is borderline mildly prominent. There are infiltrates in the left base and I believe there is a small left effusion. No right-sided identified. There is central vascular prominence. IMPRESSION: No interval improvement. Findings may be slightly more pronounced than on the prior study. [facility]
[2016-05-19] MEDS: SYMBICORT 160/4.5 MICROGM INHALER INH SCH ×2 (08:09→21:09)
[2016-05-19] MEDS: VANCOMYCIN 1,500 MG in NS 250 ML IV SCH (09:42)
[2016-05-19] MEDS: LANOXIN IV SCH (09:42)
[2016-05-19] MEDS: LASIX PO SCH (09:42)
--- NOTE | 2016-05-19 14:37 | PROGRESS NOTE ---
DATE: 05/19/2016 SUBJECTIVE: The patient is more alert and oriented today. Reports feeling fine and asking when he is going back home. OBJECTIVE: Vital Signs: Temperature 97.7, heart rate 70, respiratory rate 24, blood pressure 106/63, O2 saturation 94% on 3 L nasal cannula. General Examination: This is a chronically ill-looking frail 75-year-old male lying in bed in no acute distress. HEENT: Head is normocephalic, atraumatic. Anicteric sclerae and pale conjunctivae. Mucous membranes moist. Neck: Supple. No JVD noted. No carotid bruits. No lymphadenopathy. No thyromegaly. Cardiovascular: Irregular regular heart rhythm. No murmurs, gallops, or rubs. Respiratory: Decreased breath sounds globally. Patient is not using any accessory muscles or having work of breathing. Abdomen: Soft, nontender to palpation. Bowel sounds present. No organomegaly. Extremities: No clubbing, cyanosis or edema. Peripheral pulses present in both legs. Neurological: Patient is sleepy but able to move 4 extremities and arousable to verbal stimuli. LABORATORY DATA: White cell count 12.67, hemoglobin 12.2, hematocrit 37.7, platelets 168,000. BMP shows sodium 132 and of creatinine 1.9. ASSESSMENT AND PLAN: 1. Acute on chronic systolic heart failure. 2. Acute hypoxemic respiratory failure secondary to congestive heart failure. 3. Left lower lobe pneumonia methicillin-resistant Staphylococcus aureus. 4. Chronic kidney disease stage 5. 5. Chronic atrial fibrillation. PLAN: Patient is improving clinically. Patient has been admitted to the hospital for systolic heart failure and he was started on IV Lasix that was that was changed to p.o. Nephrology is following this patient as well. For MRSA pneumonia white cell count is 12,000 today. He is on vancomycin. We are adding clindamycin today and when he is ready to go. He can go with this medication only for 10 more days. I think this patient was on Xarelto before coming to hospital for atrial fibrillation but considering that this patient was anemic I think this is a relative contraindication for anticoagulation so at this time will continue holding steroids.
[2016-05-19] MEDS: CLEOCIN PO SCH ×2 (15:25→21:09)
[2016-05-19] MEDS: PRAVACHOL PO SCH (21:09)
[2016-05-19] MEDS: PROTONIX IV SCH (21:09)
[2016-05-19] MEDS: SODIUM CHLORIDE 0.9% INJ SCH (21:10)
[2016-05-20] MEDS: CARDIZEM PO SCH ×4 (00:50→21:06)
[2016-05-20] MEDS: CLEOCIN PO SCH ×4 (01:03→20:53)
[2016-05-20] MEDS: DUONEB (A & A) INH SCH ×6 (03:18→23:50)
[2016-05-20] MEDS: SYMBICORT 160/4.5 MICROGM INHALER INH SCH ×3 (07:24→20:11)
[2016-05-20 07:29] LABS: MANUAL DIFF NEEDED? NO
[2016-05-20 07:36] LABS: BASO% 0.1 % (0.0-0.8); EOS# 0.06 X1000 (0.0-0.7); EOS% 0.5 % (0.0-10.0); HEMATOCRIT 38.8 % (42.0-52.0); HEMOGLOBIN 12.3 g/dL (14.0-18.0); IMM GRAN# 0.04 X1000 (0.0-0.04); IMM GRAN% 0.4 % (0.0-0.5); LYMPH# 0.57 X1000 (1.2-3.4); LYMPH% 5.2 % (20.5-51.1); MCH 30.6 PG (27-31); MCHC 31.7 g/dL (33-37); MCV 96.5 FL (81-99); MONO# 0.97 X1000 (0.11-0.59); MONO% 8.9 % (1.7-9.3); MPV 10.6 FL (7.4-10.4); NEUT% 84.9 % (42.2-75.2); PLT 181 X1000 (130-400); RBC 4.02 XMIL (4.7-6.1)
[2016-05-20 07:55] LABS: CALCIUM 8.9 mg/dL (8.8-10.2); POTASSIUM 4.3 mmol/L (3.5-5.1)
--- NOTE | 2016-05-20 08:24 | PROGRESS NOTE ---
DATE: 05/20/2016 SUBJECTIVE: He states he is feeling well. Hoping for discharge today. Shortness of breath has resolved. OBJECTIVE: Vital Signs: Blood pressure 108/50, heart rate 72, respirations 19, afebrile. Intake 1 L, output 2 L. Physical Examination: General: No acute distress. Skin: Warm and dry. HEENT: Conjunctivae are pink. Neck: Neck veins are perhaps 8 cm of water. Heart: Regular with a gallop. Lungs: Have equal breath sounds. No crackles. Abdomen: Soft, nontender. Bowel sounds present. Extremities: Have no edema, clubbing, or cyanosis. LABORATORY DATA: Pending for today. IMPRESSION: 1. Acute kidney injury overlying chronic kidney disease. 2. Cardiorenal syndrome. PLAN: He is back to his routine baseline and he is on oral diuretic dosing now. We will stop his Nicolas catheter. We will arrange for outpatient followup. Okay for discharge from my perspective.
[2016-05-20] MEDS: LASIX PO SCH (11:08)
[2016-05-20] MEDS: LANOXIN IV SCH (11:09)
--- NOTE | 2016-05-20 16:25 | PROGRESS NOTE ---
DATE: 05/20/2016 SUBJECTIVE: Patient is definitely alert and awake. Reports feeling fine and keeps asking when he is going back home. OBJECTIVE: Vital Signs: Temperature 98.1 degrees, heart rate 75, respiratory rate 18, blood pressure 126/54, O2 saturation 96% on 2 L nasal cannula. General Examination: This is a chronically ill-looking and frail 75-year-old male, lying in bed, in no acute distress. HEENT: Head is normocephalic, atraumatic. Anicteric sclerae and pale conjunctivae. Mucous membranes moist. Neck: Supple. No JVD noted. No carotid bruits. No lymphadenopathy. No thyromegaly. Cardiovascular: S1, S2 heard. No murmurs, gallops, or rubs. Regular rate and rhythm. Respiratory: Clear bilaterally to auscultation. No work of breathing or using accessory muscles. Abdomen: Soft, nontender to palpation. Bowel sounds present. No organomegaly. Irregularly irregular heart rhythm. No murmurs, gallops or rubs. Respiratory: Decreased breath sounds globally. Patient is not using any accessory muscles or having work of breathing. Abdomen: Soft, nontender to palpation. Bowel sounds present. No organomegaly. Extremities: No clubbing, cyanosis, or edema. Peripheral pulses present in both legs. Neurological: Patient is more awake, moves 4 extremities. According to the nurse was able to sit in a chair. LABORATORY DATA: White cell count 10.96, hemoglobin 12.3, hematocrit 38.8, platelets 181,000. BMP unremarkable except BUN 61, creatinine 1.7. ASSESSMENT: 1. Acute on chronic systolic heart failure. 2. Acute hypoxemic respiratory failure secondary to congestive heart failure. 3. Left lower lobe pneumonia, methicillin-resistant Staphylococcus aureus. 4. Chronic kidney disease stage 5. 5. Chronic atrial fibrillation. PLAN: The patient continues to improve clinically. Patient admitted to the hospital for systolic heart failure, was started on Lasix that was changed to p.o. Nephrology was following this patient. The renal function is improving, so they are okay to let this patient go. For methicillin-resistant Staphylococcus aureus pneumonia, white cell count is almost back to normal. He is on vancomycin and clindamycin and upon discharge he can be discharged on clindamycin for 1 week. This patient has been on Xarelto for atrial fibrillation, but because of this anemia, definitely he is not a candidate for anticoagulation, so we prefer to continue holding any blood thinner. Also for chronic kidney disease, as we mentioned before, creatinine was getting better, so Nephrology has signed out. For chronic atrial fibrillation, we will continue with recommendations from Cardiology and they recommend digoxin and also diltiazem. That can be changed to Cardizem CD upon discharge. By now, Physical Therapy evaluation is pending to see if this patient needs to be sent to rehab facility versus home health with physical therapy.
[2016-05-20] MEDS: VANCOMYCIN 1,500 MG in NS 250 ML IV SCH (20:53)
[2016-05-20] MEDS: PRAVACHOL PO SCH (20:53)
[2016-05-20] MEDS: PROTONIX IV SCH (20:54)
[2016-05-20] MEDS: GOLYTELY PO ONE ×2 (20:54)
[2016-05-20] MEDS: SODIUM CHLORIDE 0.9% INJ SCH (20:54)
[2016-05-21] MEDS: DUONEB (A & A) INH SCH ×6 (03:15→22:45)
[2016-05-21] MEDS: CARDIZEM PO SCH ×4 (03:48→20:50)
[2016-05-21] MEDS: CLEOCIN PO SCH ×4 (03:48→20:50)
[2016-05-21] MEDS: SYMBICORT 160/4.5 MICROGM INHALER INH SCH ×2 (07:17→19:10)
--- NOTE | 2016-05-21 08:52 | Diag Imaging Result Document ---
PROCEDURE NAME: CHEST-2 VIEWS - 05/21/2016 PA AND LATERAL RADIOGRAPH OF THE CHEST: COMPARISON: 05/19/2016. FINDINGS: There is evidence of prior granulomatous disease, stable. There is an infiltrate at the left lung base that is probably stable given differences in inspiration and differences in the current PA versus the previous AP technique. No new consolidation is identified. There is stable cardiomegaly. IMPRESSION: 1. Approximately stable opacity at the left lung base given differences in technique. 2. Stable cardiomegaly.
[2016-05-21] MEDS: LASIX PO SCH (09:46)
[2016-05-21] MEDS: LANOXIN IV SCH (09:47)
--- NOTE | 2016-05-21 12:37 | PROGRESS NOTE ---
DATE: 05/21/2016 SUBJECTIVE: The patient is doing fine. Reports feeling very weak and that is why he did not work with physical therapy yesterday. OBJECTIVE: Vital Signs: Temperature 98.3 degrees, heart rate 74, respiratory rate 18, blood pressure 148/88, O2 saturation 91% on 3 L nasal cannula. General Examination: This is a chronically ill-looking and frail, 75-year-old male, lying in bed, in no acute distress. HEENT: Head is normocephalic, atraumatic. Anicteric sclerae. Pale conjunctivae. Mucous membranes moist. Neck: Supple. No JVD noted. No carotid bruits. No lymphadenopathy. No thyromegaly. Cardiovascular: S1, S2 heard. Irregularly irregular. No murmurs, gallops, or rubs. Respiratory: Clear bilaterally to auscultation. No work of breathing or using accessory muscles. Abdomen: Soft. Nontender to palpation. Bowel sounds present. No organomegaly. Extremities: No clubbing, cyanosis, or edema. Peripheral pulses present in both legs. Neurological: Patient is alert and oriented. Moves 4 extremities. LABORATORY DATA: White cell count 10.96, hemoglobin 12.3, hematocrit 38.8, platelets 181,000. ASSESSMENT: 1. Acute on chronic systolic heart failure. 2. Acute hypoxemic respiratory failure secondary to congestive heart failure. 3. Left lower pneumonia, methicillin-resistant Staphylococcus aureus. 4. Chronic kidney disease stage 5. 5. Chronic atrial fibrillation. PLAN: The patient continues to improve clinically. Regarding this acute systolic heart failure he is doing fine. We will continue with Lasix, in this case 80 mg p.o. daily. Regarding chronic kidney disease, nephrology was following this patient. They signed off and they are planning to see him in the office. Regarding MRSA pneumonia, patient is on vancomycin and clindamycin. He can be discharged on clindamycin for 7 days. Because of those chronic conditions, the patient needs a rehabilitation facility. We are basically waiting for social science manager. For chronic atrial fibrillation, patient will continue with Kvng DURAN. For long-term anticoagulation I think he is not a good candidate for this considering his history of anemia.
--- NOTE | 2016-05-21 13:59 | PROGRESS NOTE ---
DATE: 05/21/2016 TIME SEEN: 0835 hours. SUBJECTIVE: Mr. Joseph is resting quietly in bed. He has no complaints. States that he feels that he is getting close to going home. OBJECTIVE: His most recent vital signs: His temperature is 98.4 degrees, blood pressure 136/69, heart rate 58 and respirations 18. He is currently on 3 L nasal cannula. Last recorded saturation is 91% to 94%. He has had 372 in; he has had 600 out. He continues in a negative fluid volume balance of 2 L in the last 24 hours. LABORATORY DATA: His labs this a.m. have not been drawn. His last potassium is 4.3, with a previous hemoglobin of 12.3. Last BUN was 61 with a creatinine of 1.7. PHYSICAL EXAMINATION: General: This is a 75-year-old, male. He is currently resting in bed. He is in no acute distress. Skin: Warm and dry. HEENT: Normocephalic, atraumatic. Conjunctiva is pink. He has MIAH. Mucous membranes moist. Neck: Supple. Trachea midline. No JVD. Cardiovascular: Regular rate and rhythm. He is without murmur or gallop. Lungs: Clear to auscultation anteriorly. Equal excursion. He is on O2. Abdomen: Round, soft, nontender. Positive bowel sounds. Genitourinary: Not inspected. Adequate urine out per void. Extremities: Have no edema. No clubbing or cyanosis. Integumentary: No rashes or lesions evident. Neurological: Alert and oriented x3. ASSESSMENT AND PLAN: 1. Acute kidney injury, overlying chronic kidney disease stage III-B. Patient is below his baseline of 2.2 on last check. We will check labs in the morning. If discharged, patient has been instructed to follow up in our office within 2-3 weeks of discharge. 2. Cardiorenal syndrome. His creatinine has continued to improve. No indications for any changes. 3. Electrolytes; last checked, these were stable. 4. Anemia. This remains stable. I would like to thank you for allowing us to follow with this patient. Seen, data reviewed, discussed with Jonh Covarrubias on 05/21/16. I agree with the above assessment and plan of care. rg Dictated by RUMA Dye for Ej Gill MD JENNIFER
[2016-05-21] MEDS: SODIUM CHLORIDE 0.9% INJ SCH (20:50)
[2016-05-21] MEDS: PRAVACHOL PO SCH (20:50)
[2016-05-21] MEDS: PROTONIX IV SCH (20:50)
[2016-05-22] MEDS: CARDIZEM PO SCH ×4 (02:35→20:23)
[2016-05-22] MEDS: CLEOCIN PO SCH ×4 (02:35→20:23)
[2016-05-22] MEDS: DUONEB (A & A) INH SCH ×6 (02:46→23:11)
[2016-05-22] MEDS: SYMBICORT 160/4.5 MICROGM INHALER INH SCH ×2 (08:17→21:11)
[2016-05-22 08:34] LABS: ALBUMIN 3.3 g/dL (3.5-5.0); CALCIUM 9.5 mg/dL (8.8-10.2); POTASSIUM 4.7 mmol/L (3.5-5.1)
[2016-05-22] MEDS: LANOXIN IV SCH (10:00)
[2016-05-22] MEDS: LASIX PO SCH (10:00)
[2016-05-22] MEDS: VANCOMYCIN 1,500 MG in NS 250 ML IV SCH (10:00)
--- NOTE | 2016-05-22 10:28 | PROGRESS NOTE ---
DATE: 05/22/2016 Mr. Joseph's renal function is at baseline, and he is maintaining his volume status with diuretics. We will sign off at this time. We have made arrangements for him to follow with us in the office as an outpatient.
--- NOTE | 2016-05-22 12:07 | PROGRESS NOTE ---
DATE: 05/22/2016 SUBJECTIVE: Patient reports feeling fine. The patient reports having a fall today. She is not complaining of any pain at this time. OBJECTIVE: Vital Signs: Temperature 97.4 degrees, heart rate 75, respiratory rate 16, blood pressure 116/78, O2 saturation 99% on 2 L cannula. General Examination: This is a chronically ill-looking, frail 75-year-old -Citizen Of [place] male, lying in bed, in no acute distress. HEENT: Head is normocephalic, atraumatic. Anicteric sclerae and pale conjunctivae. Mucous membranes moist. Neck: Supple. No jugular venous distention noted. No carotid bruits. No lymphadenopathy. No thyromegaly. Cardiovascular: S1, S2 heard. No murmurs, gallops, or rubs. Regular rate and rhythm. Respiratory Examination: Clear bilaterally to auscultation. No work of breathing or using accessory muscles. Abdomen: Soft, nontender to palpation. Bowel sounds present. No organomegaly. Extremities: No clubbing, cyanosis, or edema. Peripheral pulses present in both legs. Neurological Examination: Patient is alert and oriented x3. Able to move 4 extremities. Cranial nerves 2-12 grossly normal. LABORATORY DATA: BMP is unremarkable except creatinine 1.6 and BUN 54. ASSESSMENT/PLAN: 1. Acute on chronic systolic heart failure. 2. Acute hypoxemic respiratory failure secondary to congestive heart failure. 3. Left lower lobe pneumonia, methicillin resistant staph aureus. 4. Chronic kidney disease, Stage 5. 5. Colon atrial fibrillation. The patient continues to improve clinically. He is still requiring 2 L of oxygen by nasal cannula. He reports feeling better with no shortness of breath at rest. Currently he is on Lasix 80 mg p.o. daily. Regarding his chronic kidney disease, his baseline is 2.2 creatinine that is getting better to 1.6 today. Nephrology is following this patient. I am planning to have followup with him in 2 to 3 weeks from discharge. Regarding the methicillin resistant staph aureus pneumonia, the patient is on vancomycin and clindamycin. We will discharge him on clindamycin for 5-7 days. The patient had a fall today. Definitely this patient is still very weak, so he is working with physical therapy daily and we are basically waiting for a bed in the rehab facility. For chronic atrial fibrillation, we will continue with Kvng DURAN.
[2016-05-22] MEDS: PRAVACHOL PO SCH (20:22)
[2016-05-22] MEDS: PROTONIX IV SCH (20:23)
[2016-05-22 21:09] LABS: URINE CULTURE NEEDED? NO; URINE MICRO REVIEW NEEDED? NO; URINE SOURCE CATH
[2016-05-22 21:16] LABS: BILIRUBIN URINE NEGATIVE (NEGATIVE); BLOOD URINE NEGATIVE (NEGATIVE); COLOR YELLOW; GLUCOSE URINE NEGATIVE (NEGATIVE); LEUKOCYTES URINE NEGATIVE (NEGATIVE); NITRITE URINE NEGATIVE (NEGATIVE); PH URINE 6.5; PROTEIN URINE TRACE mg/dL (NEGATIVE); SP GRAVITY URINE 1.011; TURBIDITY URINE CLEAR (CLEAR); UROBILINOGEN URINE 2 mg/dL (NORMAL)
[2016-05-22 21:18] LABS: UR EPITHELIAL CELLS <10 /HPF (<10); URINE BACTERIA NEGATIVE /HPF; URINE RBC <10 /HPF (<10); URINE WBC <10 /HPF (<10)
[2016-05-23] MEDS: DUONEB (A & A) INH SCH ×6 (03:05→23:09)
[2016-05-23] MEDS: CLEOCIN PO SCH ×4 (04:29→20:00)
[2016-05-23] MEDS: CARDIZEM PO SCH ×4 (04:30→20:00)
[2016-05-23] MEDS: SYMBICORT 160/4.5 MICROGM INHALER INH SCH ×2 (07:24→19:10)
--- NOTE | 2016-05-23 07:28 | Diag Imaging Result Document ---
PROCEDURE NAME: CT THORAX W/O CONTRAST - 05/22/2016 CT CHEST: A CT dose reduction protocol was used. COMPARISON: Chest x-ray 05/21/2016. FINDINGS: Stable left-sided pacemaker in good position. Stable CABG changes. Stable significant cardiomegaly. There is significant constipation in the upper abdomen. There is a partially visualized abdominal aorta endovascular stent. There is heterogeneous fatty change of the liver. There are some hazy infiltrates in the lower lobes and lingula. There is some mild predominantly paraseptal emphysema. No pneumothorax or pleural effusion. Bony structures are intact. IMPRESSION: 1. Cardiomegaly. Hazy bilateral predominantly lower lobe infiltrates. These are nonspecific but the appearance suggests pulmonary edema. 2. COPD. 3. Severe constipation. [facility]
[2016-05-23 07:50] LABS: ALBUMIN 2.6 g/dL (3.5-5.0); CALCIUM 9.2 mg/dL (8.8-10.2); POTASSIUM 4.4 mmol/L (3.5-5.1)
[2016-05-23] MEDS: LASIX PO SCH (08:48)
[2016-05-23] MEDS: LANOXIN IV SCH (08:48)
--- NOTE | 2016-05-23 12:09 | PROGRESS NOTE ---
DATE: 05/23/2016 SUBJECTIVE: The patient is doing fine. No other complaints at this time. Denies any shortness of breath or chest pain. OBJECTIVE: Vital Signs: Temperature 97.8 degrees, heart rate 71, respiratory rate 18, blood pressure 125/71 and O2 saturation 94% on 2 L nasal cannula. General Examination: This is a chronically ill-looking and frail, 75-year-old male, lying in bed in no acute distress. HEENT: Head is normocephalic, atraumatic. Anicteric sclerae and pale conjunctivae. Mucous membranes moist. Neck: Supple. No JVD noted. No carotid bruits. No lymphadenopathy. No thyromegaly. Cardiovascular exam: S1, S2 heard. No murmurs, gallops, or rubs. Regular rate and rhythm. Respiratory exam: Clear bilaterally to auscultation with a few crackles noted in both bases, but patient is not using any accessory muscles or having work of breathing. Abdomen: Soft, nontender to palpation. Bowel sounds present. No organomegaly. Extremities: No clubbing, cyanosis, or edema. Peripheral pulses present in both legs. Neurological examination: Patient is alert and oriented x3. Able to move 4 extremities. Cranial nerves 2-12 grossly normal. LABORATORY DATA: BMP is unremarkable, except creatinine 1.7 and BUN 52. ASSESSMENT: 1. Acute on chronic systolic heart failure. 2. Acute hypoxemic respiratory failure, secondary to congestive heart failure. 3. Left lower lobe pneumonia, methicillin-resistant Staphylococcus aureus. 4. Chronic kidney disease stage V. 5. Chronic atrial fibrillation. PLAN: Patient continues to improve clinically. By now, his oxygen needs are going down. Currently, he is needing just 2 L of oxygen by nasal cannula. For left lower lung pneumonia MRSA the patient has received 10 days of vancomycin and 2 days of clindamycin. So considering that this MRSA has been isolated from sputum and not from the blood and the fact that he has received already 10 days of antibiotics, it made me think that this patient is not contagious anymore. Definitely, will need to complete 14 days of antibiotics. At discharge he may need to have 4 more days of oral antibiotics, in this case his clindamycin. For chronic kidney disease stage V, the creatinine has been checked daily and it is now around 1.5 most of the time. I think this is his baseline. The patient is good to go from renal standpoint. For chronic atrial fibrillation, we will continue with Kvng DURAN. Cardiology wants to see this patient before decide for chronic anticoagulation. From our standpoint, patient is good to go any time we get a bed for him in rehab facility.
[2016-05-23] MEDS: PROTONIX IV SCH (19:59)
[2016-05-23] MEDS: PRAVACHOL PO SCH (20:00)
[2016-05-23] MEDS: VANCOMYCIN 1,500 MG in NS 250 ML IV SCH (20:00)
[2016-05-24] MEDS: CLEOCIN PO SCH ×3 (01:07→15:30)
[2016-05-24] MEDS: DUONEB (A & A) INH SCH ×3 (02:47→11:32)
[2016-05-24] MEDS: CARDIZEM PO SCH ×3 (04:08→15:30)
[2016-05-24 07:46] LABS: ALBUMIN 2.9 g/dL (3.5-5.0)
[2016-05-24] MEDS: SYMBICORT 160/4.5 MICROGM INHALER INH SCH (07:54)
[2016-05-24 08:25] VITALS: BP 134/60
[2016-05-24] MEDS: LASIX PO SCH (10:57)
[2016-05-24] MEDS: LANOXIN IV SCH (10:57)
--- NOTE | 2016-05-24 13:46 | PROGRESS NOTE ---
DATE: 05/24/2016 SUBJECTIVE: Patient is feeling fine. He keeps asking when he is going to rehab. OBJECTIVE: Vital Signs: Temperature 98 degrees, heart rate 89, respiratory rate 15, blood pressure 134/60. O2 saturation 100% 3 L nasal cannula. General: This is a chronically ill- looking and frail 75-year-old -[place] male lying in bed in no acute distress. HEENT: Head is normocephalic and atraumatic. Anicteric sclerae and pale conjunctivae. Mucous membranes moist. Neck supple. No JVD noted. No carotid bruits. No lymphadenopathy. No thyromegaly. Cardiovascular: S1, S2 heard. No murmurs, gallops, or rubs. Regular rate and rhythm. Respiratory: Clear bilaterally to auscultation. No work of breathing or using accessory muscles. Abdomen is soft, nontender to palpation. Bowel sounds present. No organomegaly. Extremities: No clubbing, cyanosis, or edema. Peripheral pulses present in both legs. Neurologic: The patient is alert and oriented x3. Able to move 4 extremities. Cranial nerves 2-12 grossly normal. LABORATORY DATA: BMP is unremarkable except BUN is 47, creatinine 1.7. ASSESSMENT AND PLAN: 1. Mdbwy-rb-wxnyyrs systolic heart failure. 2. Acute hypoxemic respiratory failure secondary to congestive heart failure. 3. Methicillin-resistant Staphylococcus aureus left lower lobe pneumonia. 4. Chronic kidney disease, stage 5. 5. Chronic atrial fibrillation. PLAN: Patient is medically stable. He was admitted for [id number] systolic heart failure. His oxygen needs were 5-6 L of oxygen per minute and those needs have been going down progressively. By now, he is needing just 2 L of oxygen. His sputum culture reveals MRSA, so that is the that is causing this left lower lobe pneumonia. The patient has been on vancomycin for 11 days and also on clindamycin as well for the last 3 days. The patient, as we mentioned before, has isolated MRSA from the sputum and not from the blood, so I think this patient is not contagious, as I mentioned in my notes yesterday. He can be discharged any time with clindamycin to complete 14 days of therapy. Also, for chronic kidney disease, the creatinine has been improving and today his baseline is 1.7. The patient is good to go from a renal standpoint. For chronic atrial fibrillation, we will continue with Kvng DURAN. This patient has been medically stable for the last 4 days but, unfortunately, we are still waiting for a rehab facility bed. We will see if that happens on Friday or Friday.
--- NOTE | 2016-05-24 15:12 | DISCHARGE SUMMARY ---
ADMISSION DATE: 05/13/2016 DISCHARGE DATE: 05/24/2016 CONSULTATIONS: Dr. Ej Gill with nephrology, Dr. Etienne with cardiology, Dr. Mehran Nathan with Pulmonology. PERTINENT PROCEDURES: Chest CT showed cardiomegaly hazy bilateral predominantly lower lobe infiltrates, nonspecific but the appearance suggests pulmonary edema, COPD and severe constipation. Echocardiogram showed severe LV systolic dysfunction with an EF of 15-20%, global hypokinesis. Renal ultrasound showed several right renal cysts otherwise no complications to the right kidney, left kidney is obscured due to patient's condition and position. DISCHARGE DIAGNOSIS: 1. Acute on chronic systolic heart failure. Patient is on 2-3 L of O2 is. Patient is on hemodialysis Friday, Friday, Friday. 2. Acute hypoxic respiratory failure secondary to congestive heart failure improved. 3. Methicillin-resistant Staphylococcus aureus left lower lobe pneumonia. Sputum culture revealed Methicillin-resistant Staphylococcus aureus that was in the sputum. The patient has been on vancomycin for 11 days with clindamycin as well for the last 3 days, again isolated methicillin-resistant Staphylococcus aureus from the sputum not from the blood, Dr. Calloway felt the patient was not contagious as he mentioned in notes from yesterday and as well as today. Patient will be discharged with clindamycin to complete 14 days worth of therapy. 4. Acute kidney injury on chronic kidney disease. 5. Chronic atrial fibrillation. Patient to continue on home Cardizem as well as his Coumadin. HOSPITAL COURSE: Briefly Mr. Joseph is a 75-year-old male who carries a past medical history of chronic systolic heart failure, EF of 15 to 20%, COPD, coronary artery disease status post CABG, atrial fibrillation with defibrillator, hypertension, dyslipidemia, chronic kidney disease on hemodialysis Friday, Friday, Friday, recent diagnosis of pneumonia on 05/09/[address] Yaritza Gonzalez and was started on Levaquin given a dose pack. He was not feeling better by Friday was felt to start a Z-Han which he did. Patient continued to worsening with shortness of breath, worsening with his bilateral lower extremity edema, also complained of some abdominal discomfort. Family also did report a very productive cough that was chronic in nature for over a year. They did want to bring him to the ED I believe 2 days prior on a Friday however unfortunately his brother so they were trying to hold off until the but the patient's condition worsened so much that they had to bring him to the ED where he was placed on BiPAP and then shortly after intubated by the ED doctors. His ABGs did show a metabolic acidosis. A chest x-ray showed a left basilar infiltrate and/or atelectasis with pleural effusion. He was admitted to the ICU with a pulmonary, cardiology and nephrology consult and he was started on IV vancomycin and cefepime. Patient did not have end-stage renal disease. He had an acute kidney injury on chronic kidney disease. He was not on hemodialysis. He was closely monitored by nephrology team and did not require any hemodialysis. Sputum did grow MRSA of the left lower lobe. He was successfully extubated on 05/16/2016. Patient to receive 11 days of IV vancomycin as well as 3 days of clindamycin and again the MRSA was isolated from the sputum not from the blood and Dr. Calloway felt that the patient was not contagious and could be taken off of isolation. Cardiology continued the patient on present dose of Cardizem as well as a low-dose digoxin. It was felt that the patient would need rehab facility for him to recover from his acute process as well as speaking to the patient and family about end life measures since his overall prognosis was very poor. The patient has just been awaiting a rehabilitation bed for several days now. He is requiring anywhere from 2-3 L nasal cannula. Patient is appropriate for discharge from a renal standpoint. Follow up with them in 2-3 weeks with labs. Again he has been medically stable for the past 4 days for discharge. Today he does have a bed at [facility]. DISCHARGE DIET: Is pureed with strict aspiration precautions. DISCHARGE MEDICATIONS: As per Dr. Calloway. FOLLOWUP: Patient is being discharged to [facility]. He will need to follow up with Dr. Gill in 2-3 weeks postdischarge with labs as well as follow up with Dr. Etienne within the month and Dr. Gonzalez his primary care physician after rehab. Again family has been advised against patient's overall poor prognosis and end of life measures. However they want to see him go to rehab to overcome these acute processes and reevaluate. Patient can return to the ED for any worsening of symptoms. DISCHARGE TIME: Greater than 30 minutes. Dictated by RUMA De León for Mark James MD
== END 2016-05-24 17:00 | DRG 208 ==
LOC: EDBD → ED 10:47 → ICU 15:34 → 3N 05-16 15:30
PROVIDERS: ATTEND Internal Medicine
PROC: 5A1945Z Respiratory Ventilation, 24-96 Consecutive Hours (ICD-10-PCS; principal; 2016-05-13)
PROC: 0BH17EZ Insertion of Endotracheal Airway into Trachea, Via Natural or Artificial Opening (ICD-10-PCS; 2016-05-13)
DX: J96.01 Acute respiratory failure with hypoxia (principal); R57.0 Cardiogenic shock; J15.212 Pneumonia due to Methicillin resistant Staphylococcus aureus; I50.23 Acute on chronic systolic (congestive) heart failure; N17.9 Acute kidney failure, unspecified; N18.5 Chronic kidney disease, stage 5; E87.2 Acidosis; I13.0 Hypertensive heart and chronic kidney disease with heart failure and stage 1 through stage 4 chronic kidney disease, or unspecified chronic kidney disease; I48.2 Chronic atrial fibrillation; J44.0 Chronic obstructive pulmonary disease with (acute) lower respiratory infection; J44.1 Chronic obstructive pulmonary disease with (acute) exacerbation; I13.2 Hypertensive heart and chronic kidney disease with heart failure and with stage 5 chronic kidney disease, or end stage renal disease; E87.5 Hyperkalemia; N18.3 Chronic kidney disease, stage 3 (moderate); E78.5 Hyperlipidemia, unspecified; K21.9 Gastro-esophageal reflux disease without esophagitis; I49.3 Ventricular premature depolarization; I25.5 Ischemic cardiomyopathy; F17.210 Nicotine dependence, cigarettes, uncomplicated; I25.10 Atherosclerotic heart disease of native coronary artery without angina pectoris; Z95.810 Presence of automatic (implantable) cardiac defibrillator; Z95.1 Presence of aortocoronary bypass graft; I25.2 Old myocardial infarction; Z82.49 Family history of ischemic heart disease and other diseases of the circulatory system; Z79.01 Long term (current) use of anticoagulants; Z79.51 Long term (current) use of inhaled steroids; Z79.899 Other long term (current) drug therapy
CPT/HCPCS: 31500; 51702; 71010; 71020; 71250; 76770; 80048; 80053; 80069; 80202; 81001; 82550; 82553; 82570; 82805; 82948; 83735; 83880; 84100; 84156; 84300; 84484; 85025; 85027; 85610; 87040; 87070; 87077; 87186; 87205; 93005; 93306; 94003; 94640; 94761; 96365; 96366; 96368; 96375; C9113; J0330; J0692; J0696; J1160; J1940; J2930; J3370; J7040; J7050; 92610-GN; 97110-GP; 97116-GP; 97530-GP; 99285-25; S0164